=== PATIENT | male | born 1990 | race Caucasian/White ===

== ENCOUNTER 2016-06-17 17:30 | Inpatient (IN) | payer MEDICAID ==
[2016-06-17 17:31] VITALS: BMI 50.1
[2016-06-17] MEDS ORDERED: Sodium Chloride 0.9% 1,000 ML IV ONE ×2 (18:20→20:50)
[2016-06-17] MEDS ORDERED: Sodium Chloride 0.9% 1,000 ML ONE ×2 (18:40→20:58)
[2016-06-17 18:42] LABS: BASO # 0.1 K/uL (0.0-0.2); BASO % 0.5 % (0.0-2.0); EOS # 0.2 K/uL (0.0-0.7); EOS % 1.4 % (0.0-4.0); HEMATOCRIT 46.6 % (35.0-51.0); LYMPH # 2.2 K/uL (1.0-4.3); LYMPH % 18.1 % (20.0-40.0); MEAN CORPUSCULAR HEMOGLOBIN 26.6 pg (27.0-31.0); MEAN CORPUSCULAR HGB CONC 33.7 g/dL (33.0-37.0); MEAN PLATELET VOLUME 7.4 fL (7.2-11.7); MONO # 0.7 K/uL (0.0-0.8); MONO % 5.9 % (0.0-10.0); NRBC % 0.1 % (0.0-2.0); RED CELL DISTRIBUTION WIDTH 14.4 % (11.5-14.5); WHITE BLOOD COUNT 12.2 K/uL (4.8-10.8)
[2016-06-17 18:47] LABS: RBC URINE 4 /hpf (0-3); TRANSITIONAL EPITHIAL < 1 /hpf (0-3); URINE BACTERIA OCC (<OCC); URINE BILIRUBIN NEGATIVE (NEGATIVE); URINE COLOR Yellow (YELLOW); URINE GLUCOSE (UA) NORMAL (Normal); URINE KETONE TRACE mg/dL (NEGATIVE); URINE LEUKOCYTE ESTERASE 3+ Leu/uL (Negative); URINE PROTEIN NEGATIVE (NEGATIVE); URINE UROBILINOGEN NORMAL mg/dL (0.2-1.0); WBC URINE 20 /hpf (0-5)
[2016-06-17 18:48] LABS: URINE BLOOD 1+ (NEGATIVE)
[2016-06-17 18:50] LABS: CHLORIDE 96 mmol/L (98-107); POTASSIUM 3.7 mmol/L (3.6-5.2); SODIUM 137 mmol/L (132-148)
[2016-06-17 18:52] LABS: GFR AFRICAN-AMERICAN > 60
[2016-06-17 18:53] LABS: ALB/GLOB RATIO 1.1 (1.0-2.1); ALKALINE PHOSPHATASE 92 U/L (38-126); ALT/SGPT 28 U/L (21-72); AST/SGOT 26 U/L (17-59); BILIRUBIN,TOTAL 0.6 mg/dL (0.2-1.3); BLOOD UREA NITROGEN 13 mg/dL (9-20); CARBON DIOXIDE 29 mmol/L (22-30); GLUCOSE,RANDOM 87 mg/dL (75-110); TOTAL PROTEIN 7.9 g/dL (6.3-8.3)
[2016-06-17 18:54] LABS: CALCIUM 8.8 mg/dl (8.6-10.4)
--- NOTE | 2016-06-17 19:09 | C.PDOC ---
History Of Present Illness 26 year old male presents to the ED with complaints of persistent right sided abdominal pain since this morning. He states the pain occasionally radiates to his back, and he admits to a history of pancreatitis. He has prior history of alcohol use, but denies recent alcohol intake. Patient also denies history of gall stones, nausea, vomiting, diarrhea, fever, dysuria/hematuria, chest pain, SOB. Time Seen by Provider: 06/17/16 17:49 Chief Complaint (Nursing): Abdominal Pain History Per: Patient History/Exam Limitations: no limitations Onset/Duration Of Symptoms: Hrs Current Symptoms Are (Timing): Still Present Severity: Moderate Location Of Pain/Discomfort: RUQ, RLQ Radiation Of Pain To:: Back Quality Of Discomfort: "Pain" Associated Symptoms: denies: Nausea, Vomiting, Diarrhea, Urinary Symptoms Past Medical History Reviewed: Historical Data, Nursing Documentation, Vital Signs Vital Signs: Last Vital Signs Temp 98.3 F 06/21/16 07:43 Pulse 77 06/21/16 07:43 Resp 20 06/21/16 07:43 BP 101/60 06/21/16 07:43 Pulse Ox 95 06/21/16 07:43 - Medical History PMH: Asthma, Gastritis, Pancreatitis Family History: States: No Known Family Hx - Social History Hx Tobacco Use: No Hx Alcohol Use: Yes (2 x a year) Hx Substance Use: No - Immunization History Hx Tetanus Toxoid Vaccination: Yes Hx Influenza Vaccination: Yes Hx Pneumococcal Vaccination: Yes Review Of Systems Except As Marked, All Systems Reviewed And Found Negative. Constitutional: Negative for: Fever, Chills Cardiovascular: Negative for: Chest Pain Respiratory: Negative for: Cough, Shortness of Breath Gastrointestinal: Positive for: Abdominal Pain. Negative for: Nausea, Vomiting , Diarrhea Physical Exam - Physical Exam Appears: Well, Non-toxic, No Acute Distress, Other (+Obese) Skin: Normal Color, Warm, Dry Head: Normacephalic Eye(s): bilateral: Normal Inspection Oral Mucosa: Moist Chest: Symmetrical Cardiovascular: Rhythm Regular (+Tachycardic) Respiratory: Normal Breath Sounds, No Accessory Muscle Use, No Rales, No Rhonchi , No Wheezing Gastrointestinal/Abdominal: Bowel Sounds, Soft, Tenderness (+Epigastric and RUQ tenderness), No Distention, No Guarding, No Rebound Back: No CVA Tenderness Extremity: Normal ROM Neurological/Psych: Oriented x3 ED Course And Treatment - Laboratory Results Result Diagrams: 06/17/16 18:39 06/21/16 07:10 O2 Sat by Pulse Oximetry: 97 (Room air) Pulse Ox Interpretation: Normal - CT Scan/US Abdomen Complete US Other Rad Studies (CT/US): Read By Radiologist, Radiology Report Reviewed CT/US Interpretation: FINDINGS: Limitations: Overall suboptimal visualization, due to bowel gas and the patient's body habitus. Gallbladder: Within normal limits in appearance, allowing for bowel gas. No evidence of gallstones, significant gallbladder wall thickening, or pericholecystic fluid. Reportedly negative sonographic Tapia's sign. Common bile duct: Does not appear abnormally dilated, measuring less than 6 mm in diameter. Liver: Demonstrates diffusely increased parenchymal echogenicity, most compatible with fatty infiltration. Enlarged, measuring 18 cm in length. Pancreas: Obscured by gas. Right kidney: Partially obscured by gas. Within normal limits in appearance. No evidence of hydronephrosis. Left kidney: Partially obscured by gas. Within normal limits in appearance. No evidence of hydronephrosis. Spleen: Mildly enlarged, measuring 13.8 cm in length. IMPRESSION: No definite acute abnormality identified, allowing for bowel gas. Enlarged, fatty liver. Mild splenomegaly. See above for remaining findings. Progress Note: Blood work, Abdomen Complete US, Urinalysis ordered and reviewed. Patient given IV NS bolus x 2, IV toradol for pain. Reevaluation Time: 20:45 Reassessment Condition: Improved (Patient resting comfortably currently, states pain has improved.) - Physician Consult Information Physician Contacted: Mary Trevizo Outcome Of Conversation: Discussed patient with Dr. Sybil Trevizo, he agrees with admission for acute pancreatitis with Dr. Blanco for GI. Medical Decision Making Medical Decision Making: differential diagnoses considered: pancreatitis, PUD, gastritis, GERD, WA/ACS, cholecystitis, cholangitis Disposition - Disposition Disposition: HOSPITALIZED Disposition Time: 21:02 Condition: STABLE - Clinical Impression Clinical Impression: Acute pancreatitis - Scribe Statement The provider has reviewed the documentation as recorded by the Scribe Lety Landis. Provider Attestation: All medical record entries made by the Scribe were at my direction and personally dictated by me. I have reviewed the chart and agree that the record accurately reflects my personal performance of the history, physical exam, medical decision making, and the department course for this patient. I have also personally directed, reviewed, and agree with the discharge instructions and disposition. Decision To Admit - Pt Status Changed To: Hospital Disposition Of: Inpatient - Admit Certification Admit to Inpatient:: After my assessment, the patient will require hospitalization for at least two midnights. This is because of the severity of symptoms shown, intensity of services needed, and/or the medical risk in this patient being treated as an outpatient. - InPatient: Physician Admission Certification:: see notes - . Bed Request Type: Regular Admitting Physician: Mary Trevizo Patient Diagnosis: Abdominal pain, Acute pancreatitis
--- NOTE | 2016-06-17 21:59 | CP.PCM.HP ---
History of Present Illness - History of Present Illness History of Present Illness: 25-year-old male who presented to the ED with complaints of persistent right- sided abdominal pain since this morning. He states the pain occasionally radiates to his back, and he admits to a history of pancreatitis. He has a prior history of alcohol use, but denies recent alcohol intake. Patient also denies history of gallstone, nausea, vomiting, diarrhea, fever, dysuria/ hematuria, chest pain, SOB. Present on Admission - Present on Admission Any Indicators Present on Admission: No Past Patient History - Infectious Disease Hx of Infectious Diseases: None - Past Medical History & Family History Past Medical History?: Yes - Past Social History Smoking Status: Never Smoked - CARDIAC Hx Cardiac Disorders: No - PULMONARY Hx Asthma: Yes - NEUROLOGICAL Hx Neurological Disorder: No - HEENT Hx HEENT Problems: No - RENAL Hx Chronic Kidney Disease: No - ENDOCRINE/METABOLIC Hx Endocrine Disorders: No - HEMATOLOGICAL/ONCOLOGICAL Hx Blood Disorders: No - INTEGUMENTARY Hx Dermatological Problems: No - MUSCULOSKELETAL/RHEUMATOLOGICAL Hx Musculoskeletal Disorders: No Hx Falls: No - GASTROINTESTINAL Hx Gastritis: Yes Hx Pancreatitis: Yes - GENITOURINARY/GYNECOLOGICAL Hx Genitourinary Disorders: No - PSYCHIATRIC Hx Substance Use: No - SURGICAL HISTORY Hx Surgeries: No - ANESTHESIA Hx Anesthesia: No Meds Allergies/Adverse Reactions: Allergies Allergy/AdvReac Type Severity Reaction Status Date / Time No Known Allergies Allergy Verified 08/29/16 02:42 Results - Vital Signs Recent Vital Signs: Last Vital Signs Temp 97.9 F 06/17/16 17:44 Pulse 76 06/17/16 21:07 Resp 15 06/17/16 21:07 BP 136/80 06/17/16 21:07 Pulse Ox 97 06/17/16 21:16 - Labs Result Diagrams: 06/17/16 18:39 06/21/16 07:10 Assessment & Plan (1) Abdominal pain Status: Acute (2) Acute pancreatitis Status: Acute (3) Bronchitis Status: Acute (4) Pancreatitis Status: Acute (5) Right upper quadrant abdominal pain Status: Acute - Assessment and Plan (Free Text) Plan: Labs and meds reviewed IV fluids Toradol Lovenox Talk with family Labs next a.m.
[2016-06-18] MEDS: Dextrose 5%/0.45% NS 1,000 ML IV SCH ×3 (01:00→22:17)
[2016-06-18] MEDS: DiphenhydrAMINE 50 mg/ml Inj IVP PRN ×5 (01:10→22:15)
[2016-06-18] MEDS: HYDROmorphone 1 mg/ml ISec IVP PRN ×5 (01:10→22:16)
[2016-06-18] MEDS ORDERED: HYDROmorphone 1 mg/ml ISec IVP STA (05:57)
--- NOTE | 2016-06-18 07:53 | US ---
Abdominal ultrasound History: Abdominal pain. Comparison: None available. Technique: Real-time sonography was performed through the abdomen. Findings: Liver: 18.6 centimeters in length. Diffuse increased echogenicity suggestive for fatty infiltration versus underlying hepatic parenchymal disease. Gallbladder appears preserved. Top normal wall thickness of 3 millimeters. Common bile duct measures 5.4 millimeters, within normal limits. Pancreas not well visualized. Spleen is enlarged measuring 13.8 x 12.4 x 5.3 centimeters. IVC and aorta not well visualized, obscured by adjacent bowel gas. Right kidney: 11.6 x 5.3 x 5.5 centimeters. No calculi or hydronephrosis. Left Kidney: Obscured by adjacent bowel gas. 12.2 x 6.4 x 4.8 centimeters. No calculi or hydronephrosis. Impression: Limited study secondary to patient noncompliance and gaseous distention of the bowel. Enlarged liver measuring 18.6 centimeters in length with diffuse increased echogenicity suggestive for fatty infiltration versus hepatic parenchymal disease. Splenomegaly. The pancreas, IVC, and aorta are not well visualized. Limited visualization of the left kidney. These findings were preliminarily reported at 8:39 p.m. on 06/17/[address] Wendy Remy from [facility].
--- NOTE | 2016-06-18 13:41 | PN ---
DATE: 06/18/2016 LOCATION: 370, bed B. This is a 26-year-old male seen for GI consultation as requested by the admitting MD on 06/17/16, see n again for followup today with intermittent periods of abdominal pain. The entire chart is reviewed including, but not limited to the most recent lab and radiology study results, current and the previ ous medication lists, current and the previous medical events and the latest lipase level is 2425. The patient has leukocytosis of 12.2. Abdominal ultrasound done today, report and films are seen. PHYSICAL EXAMINATION: GENERAL: A 26-year-old male. VITAL SIGNS: Afebrile with heart rate of 88, respiratory rate 20-22, blood pressure of 118/74. HEENT: Showed pale, dry oral mucoid membrane. Nonicteric sclerae. LUNGS: Few scattered crepitation, decreased air entry at bases. HEART: Positive S1 and S2. ABDOMEN: Soft with mild generalized tenderness. No mass or organomegaly. No rebound tenderness or guarding. RECTAL: The patient refused. EXTREMITIES: Without edema, clubbing or cyanosis. NEUROLOGIC: No reported new neurological deficits, sensory or motor. IMPRESSION: 1. Acute pancreatitis, most likely alcohol induced. 2. Reexacerbation of peptic ulcer disease. 3. Known history of bronchial asthma. SUGGESTION: 1. Agree with your plan. 2. Keep n.p.o. for now. 3. Rehydration. 4. Pain management. 3. Sectional abdominal and pelvic CAT scan. 4. Lipids profile. Annelise Horne MD cc: 14 TT: 06/18/2016 13:41:20 Confirmation # [id number] Dictation # [id number] tn
--- NOTE | 2016-06-18 14:19 | CP.PCM.PN ---
Subjective - Date & Time of Evaluation Date of Evaluation: 06/18/16 Time of Evaluation: 09:40 - Subjective Subjective: clinically same Objective - Vital Signs/Intake and Output Vital Signs (last 24 hours): Temp Pulse Resp BP Pulse Ox 98.2 F 82 20 112/77 96 06/18/16 08:15 06/18/16 08:15 06/18/16 08:15 06/18/16 08:15 06/18/16 08:15 Intake and Output: 06/18/16 06/18/16 06:59 18:59 Intake Total 630 Balance 630 - Medications Medications: Current Medications Diphenhydramine HCl (Benadryl) 25 mg IVP Q4 PRN PRN Reason: Itching / Pruritus Last Admin: 06/18/16 14:17 Dose: 25 mg Enoxaparin Sodium (Lovenox) 40 mg SC DAILY [facility] Hydromorphone HCl (Dilaudid) 1 mg IVP Q4 PRN PRN Reason: Pain, moderate (4-7) Last Admin: 06/18/16 14:13 Dose: 1 mg Dextrose/Sodium Chloride (Dextrose 5%/0.45% Ns 1000 Ml) 1,000 mls @ 100 mls/hr IV .Q10H [facility] Last Admin: 06/18/16 12:17 Dose: 100 mls/hr - Constitutional Appears: Well - Head Exam Head Exam: ATRAUMATIC, NORMAL INSPECTION, NORMOCEPHALIC - Eye Exam Eye Exam: EOMI, Normal appearance, PERRL Pupil Exam: NORMAL ACCOMODATION, PERRL - ENT Exam ENT Exam: Mucous Membranes Moist, Normal Exam - Neck Exam Neck Exam: Full ROM, Normal Inspection. absent: Lymphadenopathy - Respiratory Exam Respiratory Exam: Decreased Breath Sounds - Cardiovascular Exam Cardiovascular Exam: REGULAR RHYTHM, +S1, +S2 - GI/Abdominal Exam GI & Abdominal Exam: Soft, Diminished Bowel Sounds - Rectal Exam Rectal Exam: Deferred Assessment and Plan (1) Abdominal pain Status: Acute (2) Acute pancreatitis Status: Acute (3) Bronchitis Status: Acute (4) Pancreatitis Status: Acute (5) Right upper quadrant abdominal pain Status: Acute - Assessment and Plan (Free Text) Plan: Continue IV fluids DVT prophylaxis Dilaudid Benadryl Vitals monitoring
[2016-06-18] MEDS: Enoxaparin 40 mg Syringe SC SCH (14:38)
[2016-06-18 17:13] LABS: AMYLASE 212 U/L (30-110)
[2016-06-19] MEDS: DiphenhydrAMINE 50 mg/ml Inj IVP PRN ×4 (02:10→13:48)
[2016-06-19] MEDS: HYDROmorphone 1 mg/ml ISec IVP PRN ×6 (02:10→22:32)
[2016-06-19] MEDS: Dextrose 5%/0.45% NS 1,000 ML IV SCH ×3 (06:25→22:34)
[2016-06-19 08:14] LABS: CHLORIDE 96 mmol/L (98-107); SODIUM 135 mmol/L (132-148)
[2016-06-19 08:15] LABS: POTASSIUM 4.1 mmol/L (3.6-5.2)
[2016-06-19 08:17] LABS: AMYLASE 128 U/L (30-110); GFR AFRICAN-AMERICAN > 60
[2016-06-19 08:18] LABS: BLOOD UREA NITROGEN 8 mg/dL (9-20); CALCIUM 8.2 mg/dl (8.6-10.4); CARBON DIOXIDE 27 mmol/L (22-30); GLUCOSE,RANDOM 95 mg/dL (75-110)
[2016-06-19] MEDS: Enoxaparin 40 mg Syringe SC SCH (09:51)
--- NOTE | 2016-06-19 11:29 | PN ---
DATE: 06/19/2016 LOCATION: 370, bed B. This is a 26-year-old male seen and examined in rounds with intermittent periods of severe crampy abd ominal pain, but less than before with nausea and dyspepsia. No reported active bleeding or vomiting this morning. The entire chart is reviewed including, but not limited to the most recent lab and radiology study re sults, current and the previous medication lists, current and the previous medical events. Case was discussed at length with the staff on the floor. Today's lipase level went down to 434 with amylase 128 with subsequent improvement of his clinical status. His calcium is still low 8.2 with low BUN of 8, but normal creatinine. PHYSICAL EXAMINATION: GENERAL: A 26-year-old male appeared to be awake, alert. VITAL SIGNS: Afebrile with heart rate of 84, respiratory rate 20-22, blood pressure 116/72. HEENT: Showed pale, dry oral mucoid membrane. Nonicteric sclerae. LUNGS: Few scattered crepitation, decreased air entry at bases. HEART: Positive S1 and S2. ABDOMEN: Soft with generalized tenderness. No mass or organomegaly. No rebound tenderness or guard ing. RECTAL: The patient refused. EXTREMITIES: Without significant reported clubbing or cyanosis. NEUROLOGIC: No reported new neurologic deficits, sensory or motor. IMPRESSION: 1. Acute pancreatitis, most likely alcohol induced. 2. Known history of peptic ulcer disease. 3. Bronchial asthma by history. SUGGESTION: 1. Continue current management. 2. IV Flagyl. 3. Continue Reglan IV. 4. Keep n.p.o. until serum lipase and amylase levels are normal or near normal. 5. The patient may benefit from MRCP if his symptoms persist before discharge home. Annelise Horne MD cc: 14 TT: 06/19/2016 11:28:55 Confirmation # [id number] Dictation # [id number] tn
--- NOTE | 2016-06-19 13:35 | CP.PCM.PN ---
Subjective - Date & Time of Evaluation Date of Evaluation: 06/19/16 Time of Evaluation: 09:40 - Subjective Subjective: clinically same Objective - Vital Signs/Intake and Output Vital Signs (last 24 hours): Temp Pulse Resp BP Pulse Ox 98.3 F 81 18 109/71 97 06/19/16 08:00 06/19/16 08:00 06/19/16 08:00 06/19/16 08:00 06/19/16 08:00 Intake and Output: 06/19/16 06/19/16 06:59 18:59 Intake Total 830 Balance 830 - Medications Medications: Current Medications Diphenhydramine HCl (Benadryl) 25 mg IVP Q4 PRN PRN Reason: Itching / Pruritus Last Admin: 06/19/16 09:50 Dose: 25 mg Enoxaparin Sodium (Lovenox) 40 mg SC DAILY [facility] Last Admin: 06/19/16 09:51 Dose: 40 mg Hydromorphone HCl (Dilaudid) 1 mg IVP Q4 PRN PRN Reason: Pain, moderate (4-7) Last Admin: 06/19/16 09:47 Dose: 1 mg Dextrose/Sodium Chloride (Dextrose 5%/0.45% Ns 1000 Ml) 1,000 mls @ 100 mls/hr IV .Q10H [facility] Last Admin: 06/19/16 06:25 Dose: Not Given - Labs Labs: 06/19/16 07:45 - Constitutional Appears: Well - Head Exam Head Exam: ATRAUMATIC, NORMAL INSPECTION, NORMOCEPHALIC - Eye Exam Eye Exam: EOMI, Normal appearance, PERRL Pupil Exam: NORMAL ACCOMODATION, PERRL - ENT Exam ENT Exam: Mucous Membranes Moist, Normal Exam - Neck Exam Neck Exam: Full ROM, Normal Inspection. absent: Lymphadenopathy - Respiratory Exam Respiratory Exam: Decreased Breath Sounds - Cardiovascular Exam Cardiovascular Exam: REGULAR RHYTHM, +S1, +S2 - GI/Abdominal Exam GI & Abdominal Exam: Soft, Diminished Bowel Sounds - Rectal Exam Rectal Exam: Deferred Assessment and Plan (1) Abdominal pain Status: Acute (2) Acute pancreatitis Status: Acute (3) Bronchitis Status: Acute (4) Pancreatitis Status: Acute (5) Right upper quadrant abdominal pain Status: Acute - Assessment and Plan (Free Text) Plan: Labs noted DVT prophylaxis Benadryl Continue IV fluids Dilaudid Continue same Vitals monitoring
[2016-06-20 00:05] VITALS: RESP 20
[2016-06-20] MEDS: DiphenhydrAMINE 50 mg/ml Inj IVP PRN ×3 (02:36→23:50)
[2016-06-20] MEDS: HYDROmorphone 1 mg/ml ISec IVP PRN ×4 (02:36→18:20)
[2016-06-20] MEDS: Dextrose 5%/0.45% NS 1,000 ML IV SCH ×4 (03:03→23:07)
[2016-06-20 08:36] LABS: CHLORIDE 97 mmol/L (98-107); POTASSIUM 3.5 mmol/L (3.6-5.2); SODIUM 137 mmol/L (132-148)
[2016-06-20 08:38] LABS: AMYLASE 75 U/L (30-110); CARBON DIOXIDE 28 mmol/L (22-30); GFR AFRICAN-AMERICAN > 60
[2016-06-20 08:39] LABS: BLOOD UREA NITROGEN 7 mg/dL (9-20); CALCIUM 8.3 mg/dl (8.6-10.4); GLUCOSE,RANDOM 95 mg/dL (75-110)
--- NOTE | 2016-06-20 09:13 | CON ---
DATE: 06/17/[address] Annelise Horne to Dr. Chanda Trevizo. I was called for GI consultation by the admitting MD. The patient is seen and fully examined on 06/17 as requested by the admitting medical team for GI consultation. The entire chart is reviewed, including but not limited to, most recent lab and radiology study results, current and previous medic ation lists, current and previous medical events, allergy to medication list as well as all the avail able current and previous medical records. Case discussed at length with the staff on the floor. This is a 26-year-old male who was admitted to the hospital through the Emergency Room with a main co mplaint of severe abdominal pain, mainly in the right upper quadrant and mid epigastric area, somewha t radiates to the back, associated with nausea and dyspepsia. No reported active bleeding, chills, fever or chest pain. No reported complaint of significant shortness of breath. The patient admitted recent history of alcohol intake prior to his admission. After being admitted to the hospital, patient was found to have a leukocytosis of 12.2 with excessive increase of serum lipase and amylase levels. Abdominal CAT scan as well as ultrasound showed no definitive acute abnormalities due to excessive am ount of gas, but with evidence of enlarged fatty liver with mild splenomegaly. PAST MEDICAL HISTORY: Including, but not limited to: 1. Peptic ulcer disease, gastritis. 2. Bronchial asthma. 3. Alcohol-induced pancreatitis. FAMILY HISTORY: Unknown. ALLERGIES TO MEDICATION: Unclear. CURRENT MEDICATIONS: Lists were reviewed. SOCIAL HISTORY: Positive for alcohol intake. PHYSICAL EXAMINATION: GENERAL: A 26-year-old male, appeared to be awake, alert, oriented, mildly obese, complaining of sev ere crampy abdominal pain. VITAL SIGNS: Afebrile with pulse of 80, respiratory rate 16-18 with blood pressure 140/82. HEENT: Showed dry oral mucoid membrane. Slightly icteric sclerae. LYMPH NODES: No lymphadenitis or lymphadenopathy. LUNGS: Few scattered crepitation with decreased air entry at bases. HEART: Positive S1 and S2. ABDOMEN: Soft with diffuse generalized tenderness, but mainly in the midepigastric and right upper q uadrant area. Mildly obese. No mass or organomegaly. No rebound tenderness or guarding. RECTAL: The patient refused. EXTREMITIES: Without edema, clubbing or cyanosis. NEUROLOGIC: No reported neurological deficit, sensory or motor. IMPRESSION: 1. Acute pancreatitis, most likely secondary to alcohol induced. 2. Reexacerbation of peptic ulcer disease. 3. To rule out possible noncalculous cholecystitis. 4. Known history of gastritis as well as bronchial asthma. 5. To rule out also hyperlipidemia-induced pancreatitis. The patient is somewhat obese. SUGGESTION: 1. Agree with your plan. 2. Proton pump inhibitors. 3. Keep n.p.o. until serum lipase, amylase level are normal or near normal. 4. Lipid profile. 5. If the patient's symptoms persist, then MRCP to be kept in mind. 6. Rehydration. 7. Further recommendations to follow and no need for aggressive GI workup in the meantime. Thank you for letting me participate in your patient's case management. Annelise Horne MD cc: 14 TT: 06/20/2016 09:13:14 Confirmation # [id number] Dictation # [id number]
--- NOTE | 2016-06-20 10:31 | PN ---
DATE: 06/20/2016 LOCATION: 370, bed B. This is a 26-year-old male seen and examined in rounds with less abdominal pain, but a complaint of g eneralized weakness and malaise, appears to be somewhat awake, alert, oriented. Tolerating oral inta ke of liquid diet as ordered by nursing practitioner. The entire chart is reviewed, including but not limited to the most recent lab and radiology study re sults, current and previous medication list, current and the previous medical events. Today's labs showed low potassium of 3.5 with low BUN of 7 as well as low calcium of 8.3, but with no rmal serum lipase and amylase level, was reported leukocytosis before. Case discussed with the staff at length. PHYSICAL EXAMINATION: GENERAL: A 26-year-old old male. VITAL SIGNS: Afebrile, awake, alert, oriented with a pulse of 86, respiratory rate 20-22, blood pres sure 110/72. HEENT: Showed pale, dry oral mucoid membrane. Nonicteric sclerae. LUNGS: Few scattered crepitation, decreased air entry at bases. HEART: Positive S1 and S2. ABDOMEN: Soft with mild generalized tenderness. No mass or organomegaly. No rebound tenderness or guarding, mildly obese. RECTAL: The patient refused. EXTREMITIES: Without significant edema, clubbing or cyanosis. NEUROLOGIC: No reported new neurological deficits, sensory or motor. IMPRESSION: 1. Acute pancreatitis, believed to be secondary to alcohol-induced. 2. Reexacerbation of peptic ulcer disease. 3. Known history of bronchial asthma. SUGGESTION: 1. Continue current management. 2. Advance diet. 3. Lipid profile. 4. The patient may discharge home today if tolerates solid food and to be followed up as outpatient by the admitting medical team. Annelise Horne MD cc: 14 TT: 06/20/2016 10:31:18 Confirmation # [id number] Dictation # [id number]
[2016-06-20] MEDS: Enoxaparin 40 mg Syringe SC SCH (10:33)
--- NOTE | 2016-06-20 11:31 | CP.PCM.PN ---
Subjective - Date & Time of Evaluation Date of Evaluation: 06/20/16 Time of Evaluation: 09:40 - Subjective Subjective: clinically same Objective - Vital Signs/Intake and Output Vital Signs (last 24 hours): Temp Pulse Resp BP Pulse Ox 98.3 F 89 20 101/70 95 06/20/16 08:23 06/20/16 08:23 06/20/16 08:23 06/20/16 08:23 06/20/16 08:23 Intake and Output: 06/20/16 06/20/16 06:59 18:59 Intake Total 1100 Balance 1100 - Medications Medications: Current Medications Diphenhydramine HCl (Benadryl) 25 mg IVP Q4 PRN PRN Reason: Itching / Pruritus Last Admin: 06/20/16 02:36 Dose: 25 mg Enoxaparin Sodium (Lovenox) 40 mg SC DAILY [facility] Last Admin: 06/20/16 10:33 Dose: 40 mg Hydromorphone HCl (Dilaudid) 1 mg IVP Q4 PRN PRN Reason: Pain, moderate (4-7) Last Admin: 06/20/16 07:45 Dose: 1 mg Dextrose/Sodium Chloride (Dextrose 5%/0.45% Ns 1000 Ml) 1,000 mls @ 100 mls/hr IV .Q10H [facility] Last Admin: 06/20/16 03:03 Dose: Not Given - Labs Labs: 06/20/16 07:56 - Constitutional Appears: Well - Head Exam Head Exam: ATRAUMATIC, NORMAL INSPECTION, NORMOCEPHALIC - Eye Exam Eye Exam: EOMI, Normal appearance, PERRL Pupil Exam: NORMAL ACCOMODATION, PERRL - ENT Exam ENT Exam: Mucous Membranes Moist, Normal Exam - Neck Exam Neck Exam: Full ROM, Normal Inspection. absent: Lymphadenopathy - Respiratory Exam Respiratory Exam: Decreased Breath Sounds - Cardiovascular Exam Cardiovascular Exam: REGULAR RHYTHM, +S1, +S2 - GI/Abdominal Exam GI & Abdominal Exam: Soft, Diminished Bowel Sounds - Rectal Exam Rectal Exam: Deferred Assessment and Plan (1) Abdominal pain Status: Acute (2) Acute pancreatitis Status: Acute (3) Bronchitis Status: Acute (4) Pancreatitis Status: Acute (5) Right upper quadrant abdominal pain Status: Acute - Assessment and Plan (Free Text) Plan: Patient feeling better Plan discharge next a.m. Follow-up with Dr. Zaid Maddox same
[2016-06-20] MEDS ORDERED: Potassium Chloride 20 mEq ER Tab PO STA (22:55)
[2016-06-20] MEDS: HYDROmorphone 0.5 mg/0.5 ml ISec IVP PRN (23:51)
[2016-06-21] MEDS: DiphenhydrAMINE 50 mg/ml Inj IVP PRN (05:42)
[2016-06-21] MEDS: HYDROmorphone 0.5 mg/0.5 ml ISec IVP PRN ×2 (05:43→12:58)
[2016-06-21 07:44] VITALS: BP 101/60; PULSE 77; TEMP 98.3
[2016-06-21 07:48] LABS: CHLORIDE 100 mmol/L (98-107); POTASSIUM 4.4 mmol/L (3.6-5.2); SODIUM 138 mmol/L (132-148)
[2016-06-21 07:51] LABS: AMYLASE 69 U/L (30-110); BLOOD UREA NITROGEN 6 mg/dL (9-20); CARBON DIOXIDE 29 mmol/L (22-30); GFR AFRICAN-AMERICAN > 60
[2016-06-21 07:52] LABS: CALCIUM 8.4 mg/dl (8.6-10.4); GLUCOSE,RANDOM 89 mg/dL (75-110)
[2016-06-21] MEDS: Enoxaparin 40 mg Syringe SC SCH (09:56)
--- NOTE | 2016-06-21 12:45 | CP.PCM.PN ---
Subjective - Date & Time of Evaluation Date of Evaluation: 06/21/16 Time of Evaluation: 12:15 - Subjective Subjective: DISMANTLER NOTES Pt seen an d examined today , abdominal pain improved, denies any N/V/D, diet advanced to regular diet and pt tolerated well without any issues amylase/ lipase - WNL , a febrile A/P 26 yr old male admitted for acute pancreatitis , amylase / lipase back to normal seen by Dr. Sybil roth , cleared for discharge home today and f/u with Dr. Mar office in 3-5 day s Discharge plan discussed with patient who understands and agrees with plan Pt instructed to returns to ED if symptoms returns Objective - Vital Signs/Intake and Output Vital Signs (last 24 hours): Temp Pulse Resp BP Pulse Ox 98.3 F 77 20 101/60 95 06/21/16 07:43 06/21/16 07:43 06/21/16 07:43 06/21/16 07:43 06/21/16 07:43 Intake and Output: 06/21/16 06/21/16 06:59 18:59 Intake Total 1160 180 Balance 1160 180 - Medications Medications: Current Medications Diphenhydramine HCl (Benadryl) 25 mg IVP Q4 PRN PRN Reason: Itching / Pruritus Last Admin: 06/21/16 05:42 Dose: 25 mg Enoxaparin Sodium (Lovenox) 40 mg SC DAILY [facility] Last Admin: 06/21/16 09:56 Dose: 40 mg Hydromorphone HCl (Dilaudid) 1 mg IVP Q4 PRN PRN Reason: Pain, moderate (4-7) Last Admin: 06/21/16 05:43 Dose: 1 mg - Labs Labs: 06/21/16 07:10
--- NOTE | 2016-06-21 14:08 | PN ---
DATE: 06/21/2016 LOCATION: Room 370, bed B. This is a 26-year-old male seen and examined in rounds without significant clinical changes with repo rted abdominal pain. The entire chart is reviewed including the most recent lab and radiology study results, current and p revious medication list, current and the previous medical events, and the patient's latest SMA-7 was normal except low BUN of 6 with low calcium 8.4, but normal amylase, lipase level. PHYSICAL EXAMINATION: GENERAL: A 26-year-old male, awake, alert, oriented. VITAL SIGNS: Afebrile with pulse of 78, respiratory rate 20-22, blood pressure of 106/62. HEENT: Showed dry oral mucoid membrane, nonicteric sclerae. LUNGS: Few scattered crepitation, decreased air entry at bases. HEART: Positive S1 and S2. ABDOMEN: Soft. Bowel sounds are present with slight generalized tenderness. No mass or organomegal y. No rebound tenderness or guarding. RECTAL: The patient refused. EXTREMITIES: With mild edematous changes. No clubbing or cyanosis. NEUROLOGIC: No reported new neurological deficits, sensory or motor. IMPRESSION: 1. Acute pancreatitis. 2. Peptic ulcer disease. 3. Known history of bronchial asthma. SUGGESTION: 1. Agree with your plan. 2. Again, . 3. Advance diet. 4. We will follow up with you as per your request. Annelise Horne MD cc: [id number] TT: 06/21/2016 14:07:45 Confirmation # [id number] Dictation # [id number] leann
[2016-06-22 12:27] VITALS: O2SAT 97
== END 2016-06-21 15:27 | disposition home or self-care (01) | DRG 204 ==
LOC: C.ER 17:30 → C.9E 21:02 → C.3T 22:21
PROVIDERS: ADMIT Internal Medicine Nephrology; ATTEND Internal Medicine Nephrology
DX: K85.20 Alcohol induced acute pancreatitis without necrosis or infection (principal); K27.9 Peptic ulcer, site unspecified, unspecified as acute or chronic, without hemorrhage or perforation; K86.0 Alcohol-induced chronic pancreatitis; F10.10 Alcohol abuse, uncomplicated; J45.909 Unspecified asthma, uncomplicated

== ENCOUNTER 2016-08-29 02:27 | Inpatient (IN) | payer MEDICAID ==
[2016-08-29 02:29] VITALS: BMI 50.1
[2016-08-29] MEDS ORDERED: Sodium Chloride 0.9% 1,000 ML IV ONE ×2 (02:52→04:01)
[2016-08-29] MEDS ORDERED: Sodium Chloride 0.9% 1,000 ML ONE ×2 (02:58→04:17)
[2016-08-29] MEDS ORDERED: Morphine 4 MG/ML VIAL ONE ×2 (03:05→09:12)
[2016-08-29 03:31] LABS: ALBUMIN 3.9 g/dL (3.5-5.0)
[2016-08-29 03:33] LABS: GFR AFRICAN-AMERICAN > 60; GFR NON-AFRICAN AMERICAN > 60
[2016-08-29 03:34] LABS: ALT/SGPT 29 U/L (21-72); AST/SGOT 23 U/L (17-59); BASO # 0.1 K/uL (0.0-0.2); BASO % 0.7 % (0.0-2.0); BLOOD UREA NITROGEN 15 mg/dL (9-20); EOS # 0.2 K/uL (0.0-0.7); EOS % 1.5 % (0.0-4.0); HEMOGLOBIN 15.5 g/dL (12.0-18.0); LYMPH # 2.5 K/uL (1.0-4.3); MEAN CELL VOLUME 78.9 fL (80.0-94.0); MEAN CORPUSCULAR HEMOGLOBIN 26.1 pg (27.0-31.0); MEAN CORPUSCULAR HGB CONC 33.1 g/dL (33.0-37.0); MEAN PLATELET VOLUME 7.7 fL (7.2-11.7); MONO # 0.8 K/uL (0.0-0.8); MONO % 5.8 % (0.0-10.0); NEUT # 9.6 K/uL (1.8-7.0); RBC 5.94 Mil/uL (4.40-5.90); RED CELL DISTRIBUTION WIDTH 14.7 % (11.5-14.5); WHITE BLOOD COUNT 13.2 K/uL (4.8-10.8)
[2016-08-29 03:51] LABS: LIPASE 11570 U/L (23-300)
--- NOTE | 2016-08-29 04:31 | C.PDOC ---
History Of Present Illness 26 year old male presents to the ED with complaints of epigastric pain, LUQ pain , and nausea for two days. Patient notes a history of acute pancreatitis due to prior alcohol abuse. He states he tried taking antacids and pepto bismol at home with no relief. Patient denies fever, diarrhea, chest pain, SOB. Time Seen by Provider: 08/29/16 02:37 Chief Complaint (Nursing): Abdominal Pain History Per: Patient History/Exam Limitations: no limitations Onset/Duration Of Symptoms: Days (2 days ) Current Symptoms Are (Timing): Still Present Severity: Moderate Location Of Pain/Discomfort: Epigastric, LUQ Radiation Of Pain To:: None Quality Of Discomfort: "Pain" Associated Symptoms: Nausea. denies: Fever, Diarrhea Recent travel outside of the [place]: No Past Medical History Reviewed: Historical Data, Nursing Documentation, Vital Signs Vital Signs: Last Vital Signs Temp 98.4 F 09/02/16 15:00 Pulse 72 09/02/16 15:00 Resp 20 09/02/16 15:00 BP 122/86 09/02/16 15:00 Pulse Ox 96 09/04/16 15:00 - Medical History PMH: Asthma, Gastritis, Pancreatitis Family History: States: No Known Family Hx - Social History Hx Tobacco Use: No Hx Alcohol Use: Yes (2 x a year) Hx Substance Use: No - Immunization History Hx Tetanus Toxoid Vaccination: Yes Hx Influenza Vaccination: Yes Hx Pneumococcal Vaccination: Yes Review Of Systems Except As Marked, All Systems Reviewed And Found Negative. Constitutional: Negative for: Fever, Chills ENT: Negative for: Ear Pain, Ear Discharge Cardiovascular: Negative for: Chest Pain, Palpitations Respiratory: Negative for: Cough, Shortness of Breath Gastrointestinal: Positive for: Nausea, Abdominal Pain. Negative for: Vomiting , Diarrhea Physical Exam - Physical Exam Appears: Non-toxic, In Acute Distress (in mild to moderate pain), Other ( morbidly obese ) Skin: Normal Color, Warm, Dry Oral Mucosa: Moist Cardiovascular: Rhythm Regular, Other (Tachycardic and regular rhythm ) Respiratory: Normal Breath Sounds, No Rales, No Rhonchi, No Wheezing Gastrointestinal/Abdominal: Bowel Sounds, Soft, Tenderness (epigastric and LUQ tenderness ), No Distention, No Guarding, No Rebound Back: Normal Inspection, No CVA Tenderness Neurological/Psych: Oriented x3 ED Course And Treatment - Laboratory Results Result Diagrams: 09/02/16 07:51 07 07:51 O2 Sat by Pulse Oximetry: 96 (room air ) Pulse Ox Interpretation: Normal Progress Note: Blood work, UA ordered and reviewed. Patient given IV NS bolus, IV Morphine. Reevaluation Time: 06:40 Reassessment Condition: Unchanged (Patient still having significant pain, IV morphine ordered.) - Physician Consult Information Physician Contacted: Mary Trevizo Outcome Of Conversation: Discussed patient with Dr. Sybil Trevizo, agrees with admission for acute pancreatitis. Disposition - Disposition Disposition: HOSPITALIZED Disposition Time: 04:46 Condition: STABLE - Clinical Impression Clinical Impression: Acute pancreatitis - Scribe Statement The provider has reviewed the documentation as recorded by the Scribe Za Frey All medical record entries made by the Scribe were at my direction and personally dictated by me. I have reviewed the chart and agree that the record accurately reflects my personal performance of the history, physical exam, medical decision making, and the department course for this patient. I have also personally directed, reviewed, and agree with the discharge instructions and disposition. Decision To Admit - Pt Status Changed To: Hospital Disposition Of: Inpatient - Admit Certification Admit to Inpatient:: After my assessment, the patient will require hospitalization for at least two midnights. This is because of the severity of symptoms shown, intensity of services needed, and/or the medical risk in this patient being treated as an outpatient. - InPatient: Physician Admission Certification:: see notes - . Bed Request Type: Regular Admitting Physician: Mary Trevizo Patient Diagnosis: Acute pancreatitis
[2016-08-29 04:56] LABS: SQUAMOUS EPITHIAL < 1 /hpf (0-5); URINE BILIRUBIN NEGATIVE (NEGATIVE); URINE BLOOD NEGATIVE (NEGATIVE); URINE COLOR Yellow (YELLOW); URINE GLUCOSE (UA) NORMAL (Normal); URINE LEUKOCYTE ESTERASE 3+ Leu/uL (Negative); URINE NITRATE NEGATIVE (NEGATIVE); URINE PROTEIN NEGATIVE (NEGATIVE); URINE UROBILINOGEN NORMAL mg/dL (0.2-1.0)
[2016-08-29 04:58] LABS: URINE CLARITY Hazy (Clear)
--- NOTE | 2016-08-29 07:03 | CP.PCM.HP ---
Past Patient History - Infectious Disease Hx of Infectious Diseases: None - Past Medical History & Family History Past Medical History?: Yes - Past Social History Smoking Status: Current Some Days Smoker - CARDIAC Hx Cardiac Disorders: No - PULMONARY Hx Asthma: Yes - NEUROLOGICAL Hx Neurological Disorder: No - HEENT Hx HEENT Problems: No - RENAL Hx Chronic Kidney Disease: No - ENDOCRINE/METABOLIC Hx Endocrine Disorders: No - HEMATOLOGICAL/ONCOLOGICAL Hx Blood Disorders: No - INTEGUMENTARY Hx Dermatological Problems: No - MUSCULOSKELETAL/RHEUMATOLOGICAL Hx Musculoskeletal Disorders: No Hx Falls: No - GASTROINTESTINAL Hx Gastritis: Yes Hx Pancreatitis: Yes - GENITOURINARY/GYNECOLOGICAL Hx Genitourinary Disorders: No - PSYCHIATRIC Hx Substance Use: No - SURGICAL HISTORY Hx Surgeries: No - ANESTHESIA Hx Anesthesia: No Meds Allergies/Adverse Reactions: Allergies Allergy/AdvReac Type Severity Reaction Status Date / Time No Known Allergies Allergy Verified 08/29/16 02:42 Physical Exam - Constitutional Appears: Well - Head Exam Head Exam: ATRAUMATIC, NORMAL INSPECTION, NORMOCEPHALIC - Eye Exam Eye Exam: EOMI, Normal appearance, PERRL Pupil Exam: NORMAL ACCOMODATION, PERRL - ENT Exam ENT Exam: Mucous Membranes Moist, Normal Exam - Neck Exam Neck exam: Positive for: Normal Inspection - Respiratory Exam Respiratory Exam: Decreased Breath Sounds - Cardiovascular Exam Cardiovascular Exam: REGULAR RHYTHM, +S1, +S2 - GI/Abdominal Exam GI & Abdominal Exam: Diminished Bowel Sounds, Soft - Rectal Exam Rectal Exam: Deferred Results - Vital Signs Recent Vital Signs: Last Vital Signs Temp 98.0 F 08/29/16 02:38 Pulse 105 H 08/29/16 02:38 Resp 20 08/29/16 02:38 BP 137/85 08/29/16 02:38 Pulse Ox 96 08/29/16 04:36 - Labs Result Diagrams: 08/29/16 03:18 08/29/16 03:18
[2016-08-29] MEDS ORDERED: Sodium Chloride 0.9% 1,000 ML IV SCH (07:45)
[2016-08-29] MEDS: Lactated Ringer's 1,000 ML IV SCH ×3 (08:41→18:34)
[2016-08-29] MEDS ORDERED: Lactated Ringer's 1,000 ML ONE (09:12)
--- NOTE | 2016-08-29 09:15 | CP.PCM.CON ---
<Geremias Rivero - Last Filed: 08/29/16 09:16> History of Present Illness - History of Present Illness History of Present Illness: PGY5 GI Fellow Consult Note Patient is a 26yo male with PMHx significant for pancreatitis who presented to the ED with complaint of abdominal pain. He states that two days ago he developed sudden onset 7/10 pulsating, throbbing RUQ abdominal pain which spread to the epigastrium and eventually the right flank. He tried using antacid medications and Pepto Bismol without much relief and thus came to the ED for evaluation. Admits to drinking heavily >6 beers as well as smoking tobacco products within the past week. He has previously been noted to drink heavily has presented to the ED a number of times with similar complaints previously and has been diagnosed with pancreatitis at least 5 times. Two prior U/S have not revealed gallstones. Denies any fever, chills but admits to nausea , bloating, constipation. PMHx: obseity, pancreatitis PSHx: Denies FHx: DM Social: +EtOH use, +tobacco use, denies any illicit drug use Endo: No prior endoscopic evaluations Review of Systems - Constitutional Constitutional: absent: Chills, Fever, Weight Loss - EENT Eyes: absent: Change in Vision Nose/Mouth/Throat: absent: Sore Throat - Cardiovascular Cardiovascular: absent: Chest Pain, Dyspnea, Edema - Respiratory Respiratory: absent: Cough, Dyspnea, Excessive Mucous Production - Gastrointestinal Gastrointestinal: Abdominal Pain, Bloating, Constipation, Cramping. absent: Diarrhea, Dysphagia, Heartburn, Hematemesis, Hematochezia, Melena, Nausea, Vomiting - Genitourinary Genitourinary: absent: Dysuria, Urinary Frequency, Urinary Urgency - Musculoskeletal Musculoskeletal: absent: Back Pain, Neck Pain - Integumentary Integumentary: absent: New Lesions, Rash - Neurological Neurological: absent: Dizziness, Numbness, Focal Weakness - Psychiatric Psychiatric: absent: Anxiety, Depression - Endocrine Endocrine: absent: Polydipsia, Polyphagia, Polyuria - Hematologic/Lymphatic Hematologic: absent: Easy Bleeding, Easy Bruising, Lymphadenopathy Past Patient History - Infectious Disease Hx of Infectious Diseases: None - Past Medical History & Family History Past Medical History?: Yes - Past Social History Smoking Status: Current Some Days Smoker - CARDIAC Hx Cardiac Disorders: No - PULMONARY Hx Asthma: Yes - NEUROLOGICAL Hx Neurological Disorder: No - HEENT Hx HEENT Problems: No - RENAL Hx Chronic Kidney Disease: No - ENDOCRINE/METABOLIC Hx Endocrine Disorders: No - HEMATOLOGICAL/ONCOLOGICAL Hx Blood Disorders: No - INTEGUMENTARY Hx Dermatological Problems: No - MUSCULOSKELETAL/RHEUMATOLOGICAL Hx Musculoskeletal Disorders: No Hx Falls: No - GASTROINTESTINAL Hx Gastritis: Yes Hx Pancreatitis: Yes - GENITOURINARY/GYNECOLOGICAL Hx Genitourinary Disorders: No - PSYCHIATRIC Hx Substance Use: No - SURGICAL HISTORY Hx Surgeries: No - ANESTHESIA Hx Anesthesia: No Meds Allergies/Adverse Reactions: Allergies Allergy/AdvReac Type Severity Reaction Status Date / Time No Known Allergies Allergy Verified 08/29/16 02:42 - Medications Medications: Current Medications Famotidine (Pepcid) 20 mg IVP BID [facility] Lactated Ringer's (Lactated Ringer's) 1,000 mls @ 200 mls/hr IV .Q5H [facility] Last Admin: 08/29/16 08:41 Dose: 200 mls/hr Morphine Sulfate (Morphine) 4 mg IVP Q4 PRN PRN Reason: pain Physical Exam - Constitutional Appears: Non-toxic, No Acute Distress, Other (obese) - Eye Exam Eye Exam: EOMI, PERRL - ENT Exam ENT Exam: Mucous Membranes Moist - Respiratory Exam Respiratory Exam: Clear to Auscultation Bilateral. absent: Rales, Rhonchi, Wheezes - Cardiovascular Exam Cardiovascular Exam: RRR, +S1, +S2 - GI/Abdominal Exam GI & Abdominal Exam: Normal Bowel Sounds, Soft, Tenderness (RUQ, right flank). absent: Distended, Firm, Guarding, Organomegaly, Rigid - Extremities Exam Extremities exam: Positive for: normal inspection. Negative for: pedal edema - Neurological Exam Neurological exam: Alert, Oriented x3 - Psychiatric Exam Psychiatric exam: Normal Affect, Normal Mood - Skin Skin Exam: Dry, Warm Results - Vital Signs Recent Vital Signs: Last Vital Signs Temp 97.9 F 08/29/16 07:21 Pulse 93 H 08/29/16 07:21 Resp 20 08/29/16 07:21 BP 127/85 08/29/16 07:21 Pulse Ox 97 08/29/16 07:21 - Labs Result Diagrams: 08/29/16 03:18 08/29/16 03:18 Assessment & Plan - Assessment and Plan (Free Text) Assessment: Patient is a 26yo male with PMHx significant for pancreatitis who presented to the ED with complaint of abdominal pain. -Acute pancreatitis -Obesity Plan: -IVF LR@200cc/hr -NPO for now; can advance to liquids if pain improved/patient wants to eat -Analgesia/antiemetics per primary service -Prior CT and U/S reviewed -Prior lipid panel unremarkable -Encourage abstinence from EtOH and tobacco given recurrence - Date & Time Date: 08/29/16 Time: 08:50 <Marcello Swartz - Last Filed: 08/29/16 10:07> Meds - Medications Medications: Current Medications Famotidine (Pepcid) 20 mg IVP BID [facility] Last Admin: 08/29/16 09:42 Dose: 20 mg Lactated Ringer's (Lactated Ringer's) 1,000 mls @ 200 mls/hr IV .Q5H [facility] Last Admin: 08/29/16 08:41 Dose: 200 mls/hr Morphine Sulfate (Morphine) 4 mg IVP Q4 PRN PRN Reason: pain Results - Vital Signs Recent Vital Signs: Last Vital Signs Temp 97.9 F 08/29/16 07:21 Pulse 88 08/29/16 09:14 Resp 20 08/29/16 09:14 BP 94/64 L 08/29/16 09:44 Pulse Ox 96 08/29/16 09:14 - Labs Result Diagrams: 08/29/16 03:18 08/29/16 03:18 Attending/Attestation - Attestation I have personally seen and examined this patient.: Yes I have fully participated in the care of the patient.: Yes I have reviewed all pertinent clinical information: Yes Notes (Text): 08/29/16 10:04 26 year old male h/o pancreatitis who presents with abdominal pain, found to have recurrent pancreatitis. 1. Acute pancreatitis Plan: -patient has had 3-4 recurrent episodes of pancreatitis -he does report intermittent binge drinking of alcohol and does associate exacerbations of pancreatitis with lifestyle indiscretions -he has had two prior abdominal US negative for gallstones -prior triglycerides in 2015 are normal -no history of complications of pancreatitis -recommend bowel rest/NPO and aggressive IV fluid resuscitation with LR at 200+ cc/hr -alcohol and smoking abstinence recommended
--- NOTE | 2016-08-29 13:34 | CP.PCM.CON ---
History of Present Illness - History of Present Illness History of Present Illness: 26-year-old male with past medical history of morbid obesity, asthma, alcohol- related pancreatitis in the past is admitted with the acute pancreatitis. Patient complains of abdominal pain and dyspnea. He denies any fever, chills, chest tightness, cough or wheezing. He reports that his asthma has been at baseline. Patient is noncompliant with his medications and admits to binge drinking. Review of Systems - Review of Systems All systems: reviewed and no additional remarkable complaints except (As per HPI ) Past Patient History - Infectious Disease Hx of Infectious Diseases: None - Past Medical History & Family History Past Medical History?: Yes - Past Social History Smoking Status: Current Some Days Smoker - CARDIAC Hx Cardiac Disorders: No - PULMONARY Hx Asthma: Yes - NEUROLOGICAL Hx Neurological Disorder: No - HEENT Hx HEENT Problems: No - RENAL Hx Chronic Kidney Disease: No - ENDOCRINE/METABOLIC Hx Endocrine Disorders: No - HEMATOLOGICAL/ONCOLOGICAL Hx Blood Disorders: No - INTEGUMENTARY Hx Dermatological Problems: No - MUSCULOSKELETAL/RHEUMATOLOGICAL Hx Musculoskeletal Disorders: No Hx Falls: No - GASTROINTESTINAL Hx Gastritis: Yes Hx Pancreatitis: Yes - GENITOURINARY/GYNECOLOGICAL Hx Genitourinary Disorders: No - PSYCHIATRIC Hx Substance Use: No - SURGICAL HISTORY Hx Surgeries: No - ANESTHESIA Hx Anesthesia: No Meds Allergies/Adverse Reactions: Allergies Allergy/AdvReac Type Severity Reaction Status Date / Time No Known Allergies Allergy Verified 08/29/16 02:42 - Medications Medications: Current Medications Famotidine (Pepcid) 20 mg IVP BID [facility] Last Admin: 08/29/16 09:42 Dose: 20 mg Lactated Ringer's (Lactated Ringer's) 1,000 mls @ 200 mls/hr IV .Q5H [facility] Last Admin: 08/29/16 13:10 Dose: 200 mls/hr Morphine Sulfate (Morphine) 4 mg IVP Q4 PRN PRN Reason: pain Last Admin: 08/29/16 11:19 Dose: 4 mg Physical Exam - Eye Exam Eye Exam: Normal appearance - ENT Exam ENT Exam: Mucous Membranes Moist - Respiratory Exam Respiratory Exam: Clear to Auscultation Bilateral - Cardiovascular Exam Cardiovascular Exam: REGULAR RHYTHM, +S1, +S2 - GI/Abdominal Exam GI & Abdominal Exam: Hypoactive Bowel Sounds, Tenderness - Extremities Exam Extremities exam: Positive for: normal inspection Results - Vital Signs Recent Vital Signs: Last Vital Signs Temp 97.9 F 08/29/16 07:21 Pulse 78 08/29/16 13:09 Resp 18 08/29/16 13:09 BP 138/82 08/29/16 13:09 Pulse Ox 100 08/29/16 13:09 - Labs Result Diagrams: 08/31/16 11:41 08/31/16 11:41 Assessment & Plan - Assessment and Plan (Free Text) Assessment: History of asthma Dyspnea Acute pancreatitis Morbid obesity MATHEUS/OHS Dyspnea is likely due to pain Asthma is at baseline DuoNeb's Oxygen No need for steroids N.p.o. IV fluids We will need obstructive sleep apnea workup as outpatient
[2016-08-29] MEDS ORDERED: HYDROmorphone 0.5 mg/0.5 ml ISec IVP STA (22:28)
[2016-08-30] MEDS: Lactated Ringer's 1,000 ML IV SCH ×4 (02:19→21:47)
[2016-08-30] MEDS ORDERED: HYDROmorphone 0.5 mg/0.5 ml ISec IVP ONE (05:00)
[2016-08-30 08:11] VITALS: RESP 20
--- NOTE | 2016-08-30 08:23 | CP.PCM.PN ---
<Belén Lay - Last Filed: 08/30/16 11:48> Subjective - Date & Time of Evaluation Date of Evaluation: 08/30/16 Time of Evaluation: 07:00 - Subjective Subjective: PGY4 GI Fellow Progress Note Patient seen and examined at beside. Pt reports feeling a little better this morning, abdominal pain has slightly improved from admission however does report discomfort in LLQ and mild epigastric pain. Denies nausea or vomiting. Reports binge drinking 3 wks ago. A 12pt ROS completed and was negative except as mentioned above. Objective - Vital Signs/Intake and Output Vital Signs (last 24 hours): Temp Pulse Resp BP Pulse Ox 98.0 F 101 H 20 139/74 96 08/30/16 07:35 08/30/16 07:35 08/30/16 07:35 08/30/16 07:35 08/30/16 07:35 - Medications Medications: Current Medications Famotidine (Pepcid) 20 mg IVP BID [facility] Last Admin: 08/29/16 18:38 Dose: 20 mg Lactated Ringer's (Lactated Ringer's) 1,000 mls @ 200 mls/hr IV .Q5H [facility] Last Admin: 08/30/16 06:53 Dose: 200 mls/hr Morphine Sulfate (Morphine) 4 mg IVP Q4H PRN PRN Reason: Pain, severe (8-10) Pneumococcal Polyvalent Vaccine (Pneumovax 23 Vaccine) 0.5 ml IM .ONCE ONE Stop: 09/01/16 10:01 - Constitutional Appears: Well, No Acute Distress - Head Exam Head Exam: ATRAUMATIC, NORMOCEPHALIC - Eye Exam Eye Exam: EOMI. absent: Scleral icterus Pupil Exam: NORMAL ACCOMODATION, PERRL - ENT Exam ENT Exam: Mucous Membranes Moist, Normal Exam - Neck Exam Neck Exam: Full ROM, Normal Inspection - Respiratory Exam Respiratory Exam: Clear to Ausculation Bilateral, NORMAL BREATHING PATTERN - Cardiovascular Exam Cardiovascular Exam: REGULAR RHYTHM, RRR, +S1, +S2 - GI/Abdominal Exam GI & Abdominal Exam: Soft, Tenderness, Normal Bowel Sounds Additional comments: Mild TTP in epigastric and RUQ - Rectal Exam Rectal Exam: Deferred - Extremities Exam Extremities Exam: Full ROM, Normal Inspection - Neurological Exam Neurological Exam: Alert, Awake - Psychiatric Exam Psychiatric exam: Normal Affect, Normal Mood - Skin Skin Exam: Normal Color, Warm Assessment and Plan - Assessment and Plan (Free Text) Assessment: This is a 26y M with recurrent pancreatitis with history of binge alcohol use. Pt presented to ER with abdominal pain three days prior and associated nausea. Pt has had 3 prior hospital admissions for acute pancreatitis with Abdominal CT and US negative for gallstones but positive for fatty liver infiltrate. Lipid profile from November 2014 was wnl cholesterol 147, triglyceride 96, LDL 94, HLD 29. During this admission pt's lipase was 11, 570 received IVF bolus 2L and is currently on maintenance IVF LR 200cc/hr. Acute Mild Pancreatitis Morbid Obesity Alcohol use Plan: Continue Aggressive IVFs Monitor BUN/Cr labs from this morning, BUN is elevated to 15 from pt's baseline of 8, Cr at baseline Pt will benefit from IVF bolus at 20cc/kg if BUN still high, and continue 3cc/ kg of maintenance fluids Pt currently NPO, will advance diet to clear liquids Continue pain medications prn Will order Lipid Profile , last profile from 11/2015 Will order Pancreatic Protocol CT scan to r/o any structural abnormality Alcohol and tobacco cessation counseled, will order toxicology screen Will continue to follow patient <Ramon Ramirez - Last Filed: 08/30/16 13:03> Objective - Vital Signs/Intake and Output Vital Signs (last 24 hours): Temp Pulse Resp BP Pulse Ox 98.0 F 101 H 20 139/74 96 08/30/16 07:35 08/30/16 07:35 08/30/16 07:35 08/30/16 07:35 08/30/16 07:35 - Medications Medications: Current Medications Famotidine (Pepcid) 20 mg IVP BID [facility] Last Admin: 08/30/16 09:06 Dose: 20 mg Lactated Ringer's (Lactated Ringer's) 1,000 mls @ 200 mls/hr IV .Q5H [facility] Last Admin: 08/30/16 06:53 Dose: 200 mls/hr Morphine Sulfate (Morphine) 4 mg IVP Q4H PRN PRN Reason: Pain, severe (8-10) Last Admin: 08/30/16 09:07 Dose: 4 mg Pneumococcal Polyvalent Vaccine (Pneumovax 23 Vaccine) 0.5 ml IM .ONCE ONE Stop: 09/01/16 10:01 - Labs Labs: 08/30/16 11:21 08/30/16 11:21 Attending/Attestation - Attestation I have personally seen and examined this patient.: Yes I have fully participated in the care of the patient.: Yes I have reviewed all pertinent clinical information, including history, physical exam and plan: Yes Notes (Text): 08/30/16 12:59 I have seen and examined patient with GI fellow. No acute events overnight, he still continues to endorse generalized abdominal pain but denies nausea, vomiting, diarrhea, fever/chills. He remains NPO, review of vitals from today shows tachycardia. Morbid obesity Abdominal pain, pancreatitis - unclear etiology - Continue with aggressive IVF hydration therapy - Clear liquid diet as tolerated - Pain control - Awaiting results of lipid profile, obtain IgG4 subset panel - Given recurrent episodes of pancreatitis, would obtain pancreatic protocol CT to evaluate for pseudocyst or other parenchymal abnormality - Will continue to monitor patient clinical course
[2016-08-30] MEDS ORDERED: Morphine 4 MG/ML VIAL IVP PRN (10:00)
[2016-08-30] MEDS ORDERED: HYDROmorphone 1 mg/ml ISec IVP ONE (11:15)
[2016-08-30 11:46] LABS: ALBUMIN 3.6 g/dL (3.5-5.0)
[2016-08-30 11:48] LABS: AMYLASE 230 U/L (30-110); BASO # 0.1 K/uL (0.0-0.2); BASO % 0.9 % (0.0-2.0); EOS # 0.3 K/uL (0.0-0.7); HEMOGLOBIN 14.8 g/dL (12.0-18.0); LYMPH # 2.6 K/uL (1.0-4.3); LYMPH % 19.5 % (20.0-40.0); MEAN CELL VOLUME 78.7 fL (80.0-94.0); MEAN CORPUSCULAR HEMOGLOBIN 26.2 pg (27.0-31.0); MEAN CORPUSCULAR HGB CONC 33.3 g/dL (33.0-37.0); MEAN PLATELET VOLUME 7.8 fL (7.2-11.7); MONO # 0.8 K/uL (0.0-0.8); MONO % 6.4 % (0.0-10.0); NEUT # 9.4 K/uL (1.8-7.0); NEUT % 71.2 % (50.0-75.0); RBC 5.64 Mil/uL (4.40-5.90); RED CELL DISTRIBUTION WIDTH 14.5 % (11.5-14.5); WHITE BLOOD COUNT 13.3 K/uL (4.8-10.8)
[2016-08-30 11:49] LABS: ALT/SGPT 22 U/L (21-72); AST/SGOT 21 U/L (17-59); BLOOD UREA NITROGEN 7 mg/dL (9-20); GFR AFRICAN-AMERICAN > 60; GFR NON-AFRICAN AMERICAN > 60; LIPASE 676 U/L (23-300)
[2016-08-30 11:50] LABS: CALCIUM 8.9 mg/dl (8.6-10.4); HDL CHOLESTEROL 38 mg/dL (30-70); MAGNESIUM 1.7 mg/dL (1.6-2.3)
[2016-08-30 12:01] LABS: LDL CHOLESTEROL 80 mg/dL (0-129)
--- NOTE | 2016-08-30 13:02 | CP.PCM.PN ---
Subjective - Date & Time of Evaluation Date of Evaluation: 08/30/16 Time of Evaluation: 13:02 - Subjective Subjective: Coverage for Dr. Trevizo Patient seen and examined Complaint of abdominal pain Improving lipase No events overnight Objective - Vital Signs/Intake and Output Vital Signs (last 24 hours): Temp Pulse Resp BP Pulse Ox 98.0 F 101 H 20 139/74 96 08/30/16 07:35 08/30/16 07:35 08/30/16 07:35 08/30/16 07:35 08/30/16 07:35 - Medications Medications: Current Medications Famotidine (Pepcid) 20 mg IVP BID [facility] Last Admin: 08/30/16 09:06 Dose: 20 mg Lactated Ringer's (Lactated Ringer's) 1,000 mls @ 200 mls/hr IV .Q5H [facility] Last Admin: 08/30/16 06:53 Dose: 200 mls/hr Morphine Sulfate (Morphine) 4 mg IVP Q4H PRN PRN Reason: Pain, severe (8-10) Last Admin: 08/30/16 09:07 Dose: 4 mg Pneumococcal Polyvalent Vaccine (Pneumovax 23 Vaccine) 0.5 ml IM .ONCE ONE Stop: 09/01/16 10:01 - Labs Labs: 08/30/16 11:21 08/30/16 11:21 - Head Exam Head Exam: NORMAL INSPECTION - Eye Exam Eye Exam: Normal appearance - ENT Exam ENT Exam: Mucous Membranes Moist - Respiratory Exam Respiratory Exam: Clear to Ausculation Bilateral - Cardiovascular Exam Cardiovascular Exam: REGULAR RHYTHM, +S1, +S2 - GI/Abdominal Exam GI & Abdominal Exam: Tenderness, Normal Bowel Sounds - Extremities Exam Extremities Exam: Normal Inspection Assessment and Plan - Assessment and Plan (Free Text) Assessment: Acute pancreatitis Asthma Morbid obesity MATHEUS/OHS Continue IV fluids GI follow-up Continue trend lipase Patient started on clear liquids DuoNeb's Oxygen supplementation MATHEUS workup as outpatient
[2016-08-30] MEDS ORDERED: Iohexol 240 (50 ml) PO ONE (13:15)
[2016-08-30] MEDS ORDERED: Iodixanol 320 MG/ML 100 ML BOTTLE IV ONE (16:21)
--- NOTE | 2016-08-30 18:16 | CT ---
PROCEDURE: CT Abdomen and Pelvis with contrast HISTORY: pancreatitis, abdominal pain COMPARISON: 12/07/2015. Summary of findings on the comparison examination:Findings consistent with mild acute pancreatitis TECHNIQUE: Contrast dose: 100 cc Visipaque 320 Radiation dose: Total exam DLP = 2649.07 mGy-cm. This CT exam was performed using one or more of the following dose reduction techniques: Automated exposure control, adjustment of the mA and/or kV according to patient size, and/or use of iterative reconstruction technique. FINDINGS: LOWER THORAX: Unremarkable. LIVER: Hepatic steatosis. No focal masses. No intrahepatic bile duct dilatation or perihepatic ascites. GALLBLADDER AND BILE DUCTS: Unremarkable. PANCREAS: Evidence of mild pancreatitis less severe than that seen previously. No evidence of necrotizing pancreatitis. No evidence of pseudocyst formation. No appreciable peripancreatic retroperitoneal fluid collections. SPLEEN: Unremarkable. ADRENALS: Unremarkable. No mass. KIDNEYS AND URETERS: Unremarkable. No hydronephrosis. No solid mass. VASCULATURE: Unremarkable. No aortic aneurysm. BOWEL: Diverticulosis without an acute inflammatory component or other associated pathologic process. APPENDIX: Normal appendix. PERITONEUM: Unremarkable. No free fluid. No free air. LYMPH NODES: Unremarkable. No enlarged lymph nodes. BLADDER: Unremarkable. REPRODUCTIVE: Unremarkable. BONES: No acute fracture. OTHER FINDINGS: None. IMPRESSION: Evidence of mild acute pancreatitis without evidence of necrotizing pancreatitis.
[2016-08-30] MEDS ORDERED: HYDROmorphone 0.5 mg/0.5 ml ISec IVP STA (21:38)
[2016-08-31] MEDS: Lactated Ringer's 1,000 ML IV SCH ×4 (01:45→17:34)
--- NOTE | 2016-08-31 07:21 | CP.PCM.PN ---
<Geremias Rivero - Last Filed: 08/31/16 08:37> Subjective - Date & Time of Evaluation Date of Evaluation: 08/31/16 Time of Evaluation: 07:30 - Subjective Subjective: PGY5 GI Fellow Progress Note Patient seen and examined bedside this morning. He is laying face down on his bed as this is the only comfortable position for him presently. States that pain continues to come in waves and is predominantly located in the low-mid back. Some occasional nausea. Tolerating about 50% liquid diet tray. Does not wish to eat solid food just yet. 2 days without BM. 12 system ROS performed and negative except where stated. Objective - Vital Signs/Intake and Output Vital Signs (last 24 hours): Temp Pulse Resp BP Pulse Ox 97.7 F 126 H 20 154/60 H 95 08/31/16 02:19 08/31/16 02:19 08/31/16 02:19 08/31/16 02:19 08/31/16 02:19 Intake and Output: 08/31/16 08/31/16 06:59 18:59 Intake Total 1900 Output Total 500 Balance 1400 - Medications Medications: Current Medications Famotidine (Pepcid) 20 mg IVP BID [facility] Last Admin: 08/30/16 17:27 Dose: 20 mg Hydromorphone HCl (Dilaudid) 1 mg IVP Q4H PRN PRN Reason: pain Last Admin: 08/31/16 05:53 Dose: 1 mg Lactated Ringer's (Lactated Ringer's) 1,000 mls @ 200 mls/hr IV .Q5H [facility] Last Admin: 08/31/16 05:58 Dose: 200 mls/hr Pneumococcal Polyvalent Vaccine (Pneumovax 23 Vaccine) 0.5 ml IM .ONCE ONE Stop: 09/01/16 10:01 - Labs Labs: 08/30/16 11:21 08/30/16 11:21 - Constitutional Appears: Other (morbidly obese) - Eye Exam Eye Exam: EOMI, PERRL - ENT Exam ENT Exam: Mucous Membranes Moist - Respiratory Exam Respiratory Exam: Clear to Ausculation Bilateral. absent: Rales, Rhonchi, Wheezes - Cardiovascular Exam Cardiovascular Exam: Tachycardia, REGULAR RHYTHM, +S1, +S2 - GI/Abdominal Exam GI & Abdominal Exam: Soft, Normal Bowel Sounds. absent: Distended, Firm, Guarding, Rigid, Tenderness, Organomegaly - Back Exam Back Exam: absent: CVA tenderness (L), CVA tenderness (R), paraspinal tenderness , vertebral tenderness - Neurological Exam Neurological Exam: Alert, Awake, Oriented x3 - Psychiatric Exam Psychiatric exam: Normal Affect, Normal Mood - Skin Skin Exam: Dry, Warm Assessment and Plan - Assessment and Plan (Free Text) Assessment: Patient is a 26yo male with PMHx significant for pancreatitis who presented to the ED with complaint of abdominal pain. -Acute pancreatitis, resolving -Morbid obesity Plan: -Change IVF to LR@150cc/hr -Change Dilaudid to Q3H PRN -Tolerating liquids though with occasional nausea; continue on liquids, can advance for dinner if patient wishes -CT pancreas reviewed; mild pancreatitis but no evidence for necrosis or pseudocyst formation -Analgesia/antiemetics per primary service -Slight WBC elevation and dirty U/A, consider urine cx - kidneys/bladder unremarkable on CT -Lipid panel unremarkable -Encourage abstinence from EtOH and tobacco given recurrence <Marcello Swartz - Last Filed: 08/31/16 09:16> Objective - Vital Signs/Intake and Output Vital Signs (last 24 hours): Temp Pulse Resp BP Pulse Ox 98.1 F 105 H 20 135/85 95 08/31/16 07:00 08/31/16 07:00 08/31/16 07:00 08/31/16 07:00 08/31/16 07:00 Intake and Output: 08/31/16 08/31/16 06:59 18:59 Intake Total 1900 Output Total 500 Balance 1400 - Medications Medications: Current Medications Famotidine (Pepcid) 20 mg IVP BID [facility] Last Admin: 08/30/16 17:27 Dose: 20 mg Hydromorphone HCl (Dilaudid) 1 mg IVP Q3H PRN PRN Reason: pain Lactated Ringer's (Lactated Ringer's) 1,000 mls @ 150 mls/hr IV .Q6H40M [facility] Pneumococcal Polyvalent Vaccine (Pneumovax 23 Vaccine) 0.5 ml IM .ONCE ONE Stop: 09/01/16 10:01 - Labs Labs: 08/30/16 11:21 08/30/16 11:21 Attending/Attestation - Attestation I have personally seen and examined this patient.: Yes I have fully participated in the care of the patient.: Yes I have reviewed all pertinent clinical information, including history, physical exam and plan: Yes Notes (Text): 08/31/16 09:15 26 year old male h/o pancreatitis who presents with abdominal pain, found to have recurrent pancreatitis. 1. Acute pancreatitis Plan: -patient has had 3-4 recurrent episodes of pancreatitis -he does report intermittent binge drinking of alcohol and does associate exacerbations of pancreatitis with lifestyle indiscretions -he has had two prior abdominal US negative for gallstones -prior triglycerides in 2015 are normal and have been repeated and are normal -no history of complications of pancreatitis -alcohol and smoking abstinence recommended -received adequate resuscitation with IV fluids -CT abdomen shows no local complications or necrosis -can reduce fluids to 150cc/hr -continue pain medications and anti-emetics as needed -advance diet as tolerated to low fat
[2016-08-31 11:45] LABS: BASO # 0.1 K/uL (0.0-0.2); BASO % 0.7 % (0.0-2.0); EOS # 0.2 K/uL (0.0-0.7); EOS % 1.8 % (0.0-4.0); HEMOGLOBIN 14.1 g/dL (12.0-18.0); LYMPH # 2.2 K/uL (1.0-4.3); LYMPH % 16.7 % (20.0-40.0); MEAN CELL VOLUME 79.6 fL (80.0-94.0); MEAN CORPUSCULAR HEMOGLOBIN 26.6 pg (27.0-31.0); MEAN CORPUSCULAR HGB CONC 33.4 g/dL (33.0-37.0); MEAN PLATELET VOLUME 7.5 fL (7.2-11.7); MONO % 7.8 % (0.0-10.0); NEUT # 9.7 K/uL (1.8-7.0); NRBC % 0.1 % (0.0-2.0); RBC 5.32 Mil/uL (4.40-5.90); RED CELL DISTRIBUTION WIDTH 14.4 % (11.5-14.5); WHITE BLOOD COUNT 13.3 K/uL (4.8-10.8)
[2016-08-31 11:58] LABS: GFR AFRICAN-AMERICAN > 60; GFR NON-AFRICAN AMERICAN > 60
[2016-08-31 11:59] LABS: BLOOD UREA NITROGEN 8 mg/dL (9-20); CALCIUM 8.7 mg/dl (8.6-10.4)
--- NOTE | 2016-08-31 13:03 | CP.PCM.PN ---
Subjective - Date & Time of Evaluation Date of Evaluation: 08/31/16 Time of Evaluation: 13:02 - Subjective Subjective: Patient seen and examined No events overnight Objective - Vital Signs/Intake and Output Vital Signs (last 24 hours): Temp Pulse Resp BP Pulse Ox 98.1 F 105 H 20 135/85 95 08/31/16 07:00 08/31/16 07:00 08/31/16 07:00 08/31/16 07:00 08/31/16 07:00 Intake and Output: 08/31/16 08/31/16 06:59 18:59 Intake Total 1900 Output Total 500 Balance 1400 - Medications Medications: Current Medications Famotidine (Pepcid) 20 mg IVP BID [facility] Last Admin: 08/31/16 09:21 Dose: 20 mg Hydromorphone HCl (Dilaudid) 1 mg IVP Q3H PRN PRN Reason: pain Last Admin: 08/31/16 09:20 Dose: 1 mg Lactated Ringer's (Lactated Ringer's) 1,000 mls @ 150 mls/hr IV .Q6H40M [facility] Pneumococcal Polyvalent Vaccine (Pneumovax 23 Vaccine) 0.5 ml IM .ONCE ONE Stop: 09/01/16 10:01 - Labs Labs: 08/31/16 11:41 08/31/16 11:41 - Head Exam Head Exam: NORMAL INSPECTION - Eye Exam Eye Exam: Normal appearance - ENT Exam ENT Exam: Mucous Membranes Moist - Respiratory Exam Respiratory Exam: Clear to Ausculation Bilateral - Cardiovascular Exam Cardiovascular Exam: REGULAR RHYTHM - GI/Abdominal Exam GI & Abdominal Exam: Normal Bowel Sounds - Extremities Exam Extremities Exam: Normal Inspection - Neurological Exam Neurological Exam: Alert, Oriented x3 Assessment and Plan - Assessment and Plan (Free Text) Assessment: History of asthma Dyspnea Acute pancreatitis Morbid obesity MATHEUS/OHS Asthma is at baseline DuoNeb's Oxygen Advance diet as tolerated Pain Control IV fluids We will need obstructive sleep apnea workup as outpatient
[2016-08-31 19:20] LABS: BARBITURATES, UR NEGATIVE (NEGATIVE)
[2016-08-31 19:21] LABS: BENZODIAZEPINES, UR NEGATIVE (NEGATIVE)
[2016-08-31 19:25] LABS: OPIATES, UR POSITIVE (NEGATIVE); PHENCYCLIDINE, UR NEGATIVE (NEGATIVE)
[2016-09-01] MEDS: Lactated Ringer's 1,000 ML IV SCH ×6 (02:00→21:55)
--- NOTE | 2016-09-01 09:50 | CP.PCM.PN ---
<Kacie Lamb - Last Filed: 09/01/16 09:59> Subjective - Date & Time of Evaluation Date of Evaluation: 09/01/16 Time of Evaluation: 09:45 - Subjective Subjective: Gastroenterology Fellow/PGY5 Progress Note Patient standing at bedside. He notes improving abdominal and back pain, pain scale 6/10. Tolerating liquid diet,. Denies bowel movement for two days. A 12- point review of systems negative except for as above. Objective - Vital Signs/Intake and Output Vital Signs (last 24 hours): Temp Pulse Resp BP Pulse Ox 98.4 F 105 H 20 145/88 97 08/31/16 23:40 08/31/16 23:40 08/31/16 23:40 08/31/16 23:40 08/31/16 23:40 - Medications Medications: Current Medications Famotidine (Pepcid) 20 mg IVP BID [facility] Last Admin: 08/31/16 17:33 Dose: 20 mg Hydromorphone HCl (Dilaudid) 1 mg IVP Q3H PRN PRN Reason: pain Last Admin: 09/01/16 06:15 Dose: 1 mg Lactated Ringer's (Lactated Ringer's) 1,000 mls @ 150 mls/hr IV .Q6H40M [facility] Last Admin: 09/01/16 06:18 Dose: 150 mls/hr Pneumococcal Polyvalent Vaccine (Pneumovax 23 Vaccine) 0.5 ml IM .ONCE ONE Stop: 09/01/16 10:01 Polyethylene Glycol (Miralax) 17 gm PO DAILY [facility] - Labs Labs: 08/31/16 11:41 08/31/16 11:41 - Constitutional Appears: Non-toxic, No Acute Distress - Head Exam Head Exam: ATRAUMATIC, NORMOCEPHALIC - Eye Exam Eye Exam: EOMI, PERRL Pupil Exam: PERRL. absent: Miosis, Mydriatic - ENT Exam ENT Exam: Mucous Membranes Moist, Normal Oropharynx - Neck Exam Neck Exam: Full ROM, Normal Inspection - Respiratory Exam Respiratory Exam: Clear to Ausculation Bilateral. absent: Rales, Rhonchi, Wheezes - Cardiovascular Exam Cardiovascular Exam: RRR, +S1, +S2. absent: Gallop, Rubs - GI/Abdominal Exam GI & Abdominal Exam: Soft, Tenderness, Normal Bowel Sounds. absent: Distended, Firm, Guarding, Rigid, Organomegaly, Rebound Additional comments: left upper abdomen to epigastric discomfort - Extremities Exam Extremities Exam: Full ROM. absent: Pedal Edema - Neurological Exam Neurological Exam: Alert, Awake - Psychiatric Exam Psychiatric exam: Normal Affect, Normal Mood - Skin Skin Exam: Dry, Intact, Normal Color, Warm Assessment and Plan - Assessment and Plan (Free Text) Assessment: 26 year old male wit history of morbid obesity and recurrent pancreatitis previously secondary to binge alcohol use. Active treatment of acute mild pancreatitis, unclear etiology. Ultrasound showed no gallstones and normal triglyceride level on lipid panel. CT pancreas protocol without necrosis or fluid collections. No prior EGD or colonoscopy. Plan: >tolerating clear liquids >advance to low fat diet >pending IgG4 >bowel regimen: Colace, Miralax >supportive care: PPI, antiemetics, pain control, gentle IVFs >outpatient follow up for recurrent pancreatitis re-evaluation and possible further elective outpatient workup <Marcello Swartz - Last Filed: 09/01/16 10:03> Objective - Vital Signs/Intake and Output Vital Signs (last 24 hours): Temp Pulse Resp BP Pulse Ox 98.4 F 105 H 20 145/88 97 08/31/16 23:40 08/31/16 23:40 08/31/16 23:40 08/31/16 23:40 08/31/16 23:40 - Medications Medications: Current Medications Famotidine (Pepcid) 20 mg IVP BID [facility] Last Admin: 08/31/16 17:33 Dose: 20 mg Hydromorphone HCl (Dilaudid) 1 mg IVP Q3H PRN PRN Reason: pain Last Admin: 09/01/16 06:15 Dose: 1 mg Lactated Ringer's (Lactated Ringer's) 1,000 mls @ 150 mls/hr IV .Q6H40M [facility] Last Admin: 09/01/16 06:18 Dose: 150 mls/hr Polyethylene Glycol (Miralax) 17 gm PO DAILY [facility] - Labs Labs: 08/31/16 11:41 08/31/16 11:41 Attending/Attestation - Attestation I have personally seen and examined this patient.: Yes I have fully participated in the care of the patient.: Yes I have reviewed all pertinent clinical information, including history, physical exam and plan: Yes Notes (Text): 09/01/16 10:02 26 year old male h/o pancreatitis who presents with abdominal pain, found to have recurrent pancreatitis. 1. Acute pancreatitis Plan: -patient has had 3-4 recurrent episodes of pancreatitis -he does report intermittent binge drinking of alcohol and does associate exacerbations of pancreatitis with lifestyle indiscretions -he has had two prior abdominal US negative for gallstones -prior triglycerides in 2014 are normal and have been repeated and are normal -no history of complications of pancreatitis -alcohol and smoking abstinence recommended -received adequate resuscitation with IV fluids -CT abdomen shows no local complications or necrosis -continue pain medications and anti-emetics as needed -advance diet as tolerated to low fat -will sign off at this time
[2016-09-01] MEDS ORDERED: Pneumococcal 23-Valent Vaccine IM ONE (10:00)
[2016-09-01] MEDS: POLYETHYLENE GLYCOL 3350 17 GM/Dose PACKET PO SCH (11:00)
--- NOTE | 2016-09-01 19:42 | CP.PCM.PN ---
Subjective - Date & Time of Evaluation Date of Evaluation: 09/01/16 Objective - Vital Signs/Intake and Output Vital Signs (last 24 hours): Temp Pulse Resp BP Pulse Ox 97.7 F 94 H 20 132/86 95 09/01/16 09:30 09/01/16 09:30 09/01/16 09:30 09/01/16 09:30 09/01/16 09:30 Intake and Output: 09/01/16 09/02/16 18:59 06:59 Intake Total 1600 Balance 1600 - Medications Medications: Current Medications Famotidine (Pepcid) 20 mg IVP BID [facility] Last Admin: 09/01/16 18:28 Dose: 20 mg Hydromorphone HCl (Dilaudid) 1 mg IVP Q3H PRN PRN Reason: pain Last Admin: 09/01/16 18:31 Dose: 1 mg Lactated Ringer's (Lactated Ringer's) 1,000 mls @ 150 mls/hr IV .Q6H40M [facility] Last Admin: 09/01/16 15:24 Dose: 150 mls/hr Polyethylene Glycol (Miralax) 17 gm PO DAILY [facility] Last Admin: 09/01/16 11:00 Dose: 17 gm - Labs Labs: 08/31/16 11:41 08/31/16 11:41
--- NOTE | 2016-09-01 20:22 | CP.PCM.PN ---
Objective - Vital Signs/Intake and Output Vital Signs (last 24 hours): Temp Pulse Resp BP Pulse Ox 98.4 F 95 H 20 136/90 96 09/01/16 16:00 09/01/16 16:00 09/01/16 16:00 09/01/16 16:00 09/01/16 16:00 Intake and Output: 09/01/16 09/02/16 18:59 06:59 Intake Total 1600 Balance 1600 - Medications Medications: Current Medications Famotidine (Pepcid) 20 mg IVP BID [facility] Last Admin: 09/01/16 18:28 Dose: 20 mg Hydromorphone HCl (Dilaudid) 1 mg IVP Q3H PRN PRN Reason: pain Last Admin: 09/01/16 18:31 Dose: 1 mg Lactated Ringer's (Lactated Ringer's) 1,000 mls @ 150 mls/hr IV .Q6H40M [facility] Last Admin: 09/01/16 15:24 Dose: 150 mls/hr Polyethylene Glycol (Miralax) 17 gm PO DAILY [facility] Last Admin: 09/01/16 11:00 Dose: 17 gm - Labs Labs: 08/31/16 11:41 08/31/16 11:41
[2016-09-01] MEDS: HYDROmorphone 1 mg/ml ISec IVP PRN (22:37)
[2016-09-02] MEDS: HYDROmorphone 1 mg/ml ISec IVP PRN ×2 (02:49→10:16)
[2016-09-02] MEDS: Lactated Ringer's 1,000 ML IV SCH ×2 (02:51→05:37)
[2016-09-02 07:59] LABS: BASO # 0.1 K/uL (0.0-0.2); BASO % 0.9 % (0.0-2.0); EOS # 0.4 K/uL (0.0-0.7); EOS % 4.8 % (0.0-4.0); HEMOGLOBIN 14.4 g/dL (12.0-18.0); LYMPH % 27.1 % (20.0-40.0); MEAN CELL VOLUME 79.4 fL (80.0-94.0); MEAN CORPUSCULAR HEMOGLOBIN 26.3 pg (27.0-31.0); MEAN CORPUSCULAR HGB CONC 33.2 g/dL (33.0-37.0); MEAN PLATELET VOLUME 7.4 fL (7.2-11.7); MONO # 0.5 K/uL (0.0-0.8); MONO % 7.3 % (0.0-10.0); NEUT # 4.5 K/uL (1.8-7.0); NEUT % 59.9 % (50.0-75.0); NRBC % 0.1 % (0.0-2.0); RBC 5.46 Mil/uL (4.40-5.90); RED CELL DISTRIBUTION WIDTH 14.8 % (11.5-14.5); WHITE BLOOD COUNT 7.5 K/uL (4.8-10.8)
[2016-09-02 08:12] LABS: BLOOD UREA NITROGEN 8 mg/dL (9-20); GFR AFRICAN-AMERICAN > 60; GFR NON-AFRICAN AMERICAN > 60; LIPASE 139 U/L (23-300)
[2016-09-02 08:13] LABS: CALCIUM 8.8 mg/dl (8.6-10.4)
[2016-09-02] MEDS: POLYETHYLENE GLYCOL 3350 17 GM/Dose PACKET PO SCH (10:19)
--- NOTE | 2016-09-02 11:30 | CP.PCM.PN ---
Subjective - Date & Time of Evaluation Date of Evaluation: 09/02/16 Time of Evaluation: 09:10 - Subjective Subjective: PGY3 Medicine Note - Dr. Chanda Trevizo's service: Patient seen and examined at bedside this AM. Patient reports mild abdominal pain. Patient eating low fat diet without nausea or vomiting or increased abdominal pain. Patient walking around his room without pain. Patient had multiple bowel movements last night secondary to Miralax. Patient denies dysuria , urinary frequency. Patient says he feels ready to go home. Objective - Vital Signs/Intake and Output Vital Signs (last 24 hours): Temp Pulse Resp BP Pulse Ox 98.3 F 99 H 20 113/77 99 09/02/16 00:12 09/02/16 00:12 09/02/16 00:12 09/02/16 00:12 09/02/16 00:12 Intake and Output: 09/02/16 09/02/16 06:59 18:59 Intake Total 300 Balance 300 - Medications Medications: Current Medications Famotidine (Pepcid) 20 mg IVP BID [facility] Last Admin: 09/02/16 10:19 Dose: 20 mg Hydromorphone HCl (Dilaudid) 1 mg IVP Q3H PRN PRN Reason: pain Last Admin: 09/02/16 10:16 Dose: 1 mg Polyethylene Glycol (Miralax) 17 gm PO DAILY [facility] Last Admin: 09/02/16 10:19 Dose: Not Given - Labs Labs: 09/02/16 07:51 09/02/16 07:51 - Constitutional Appears: Non-toxic, No Acute Distress - Head Exam Head Exam: NORMAL INSPECTION - Eye Exam Eye Exam: EOMI - ENT Exam ENT Exam: Mucous Membranes Moist - Respiratory Exam Respiratory Exam: Clear to Ausculation Bilateral, NORMAL BREATHING PATTERN. absent: Rales, Rhonchi, Wheezes - Cardiovascular Exam Cardiovascular Exam: REGULAR RHYTHM, +S1, +S2. absent: Gallop, Rubs, Murmur - GI/Abdominal Exam GI & Abdominal Exam: Soft, Normal Bowel Sounds. absent: Tenderness - Extremities Exam Extremities Exam: absent: Pedal Edema - Neurological Exam Neurological Exam: Alert, Awake, Oriented x3 - Psychiatric Exam Psychiatric exam: Normal Affect, Normal Mood - Skin Skin Exam: Normal Color, Warm Assessment and Plan - Assessment and Plan (Free Text) Assessment: Acute on Chronic Pancreatitis Tolerating low fat diet Dilaudid 1mg IVP Q3H PRN GI consult - Dr. Ramirez - help appreciated - recommend outpatient follow up Pending IgG4 [place] [address] on admission to 139 today Constipation Resolved with Miralax Abnormal UA 3+ LE, 41 WBC Asymptomatic F/U urine culture Prophylaxis Pepcid 20mg IvP BID Activity as tolerated SCDs
--- NOTE | 2016-09-02 15:31 | CP.PCM.PN ---
Subjective - Date & Time of Evaluation Date of Evaluation: 09/02/16 Time of Evaluation: 08:00 - Subjective Subjective: Clinically same Objective - Vital Signs/Intake and Output Vital Signs (last 24 hours): Temp Pulse Resp BP Pulse Ox 98.3 F 99 H 20 113/77 99 09/02/16 00:12 09/02/16 00:12 09/02/16 00:12 09/02/16 00:12 09/02/16 00:12 Intake and Output: 09/02/16 09/02/16 06:59 18:59 Intake Total 300 1580 Balance 300 1580 - Medications Medications: Current Medications Famotidine (Pepcid) 20 mg IVP BID [facility] Last Admin: 09/02/16 10:19 Dose: 20 mg Hydromorphone HCl (Dilaudid) 1 mg IVP Q3H PRN PRN Reason: pain Last Admin: 09/02/16 10:16 Dose: 1 mg Polyethylene Glycol (Miralax) 17 gm PO DAILY [facility] Last Admin: 09/02/16 10:19 Dose: Not Given - Labs Labs: 09/02/16 07:51 09/02/16 07:51
[2016-09-02 16:05] VITALS: BP 122/86; PULSE 72; TEMP 98.4; O2SAT 96
== END 2016-09-02 16:00 | disposition home or self-care (01) | DRG 204 ==
LOC: C.ER 02:27 → C.9E 04:46 → C.5T 13:53 → C.3T 09-01 09:03
PROVIDERS: ADMIT Internal Medicine Nephrology; ATTEND Internal Medicine Nephrology
DX: K85.90 Acute pancreatitis without necrosis or infection, unspecified (principal); E66.01 Morbid (severe) obesity due to excess calories; J45.909 Unspecified asthma, uncomplicated; K86.1 Other chronic pancreatitis; F17.210 Nicotine dependence, cigarettes, uncomplicated; Z91.14 Patient's other noncompliance with medication regimen; G47.33 Obstructive sleep apnea (adult) (pediatric); Z72.89 Other problems related to lifestyle; K59.00 Constipation, unspecified

== ENCOUNTER 2017-10-04 04:42 | Observation (INO) | payer MEDICAID ==
[2017-10-04 04:42] VITALS: BMI 50.1
[2017-10-04] MEDS ORDERED: Sodium Chloride 0.9% 1,000 ML IV ONE ×2 (05:21→06:41)
[2017-10-04 06:00] LABS: BASO % 0.5 % (0.0-2.0); EOS # 0.1 K/uL (0.0-0.7); EOS % 1.5 % (0.0-4.0); HEMOGLOBIN 15.7 g/dL (12.0-18.0); LYMPH % 10.7 % (20.0-40.0); MEAN CELL VOLUME 78.8 fL (80.0-94.0); MEAN CORPUSCULAR HEMOGLOBIN 26.9 pg (27.0-31.0); MEAN CORPUSCULAR HGB CONC 34.2 g/dL (33.0-37.0); MEAN PLATELET VOLUME 7.4 fL (7.2-11.7); MONO # 0.7 K/uL (0.0-0.8); MONO % 7.1 % (0.0-10.0); NEUT # 7.5 K/uL (1.8-7.0); NEUT % 80.2 % (50.0-75.0); NRBC % 0.1 % (0.0-2.0); RBC 5.84 Mil/uL (4.40-5.90); RED CELL DISTRIBUTION WIDTH 14.8 % (11.5-14.5); WHITE BLOOD COUNT 9.3 K/uL (4.8-10.8)
--- NOTE | 2017-10-04 06:11 | C.PDOC ---
History Of Present Illness 27 year old male presents to the ED complaining of swollen eyes, generalized headache, chills, and rhinorrhea. He reports he took Tylenol with mild relief. Notes he gets a headache when he moves his head. He denies any fever, nausea, vomiting, abdominal pain, SOB, chest pain, cough or any other associated symptoms. Time Seen by Provider: 10/04/17 05:06 Chief Complaint (Nursing): ENT Problem History Per: Patient History/Exam Limitations: no limitations Onset/Duration Of Symptoms: Days Current Symptoms Are (Timing): Still Present Severity: Mild Past Medical History Reviewed: Historical Data, Nursing Documentation, Vital Signs Vital Signs: Last Vital Signs Temp 99.3 F 10/04/17 06:51 Pulse 107 H 10/04/17 06:51 Resp 14 10/04/17 06:51 BP 96/64 L 10/04/17 06:51 Pulse Ox 95 10/04/17 06:51 - Medical History PMH: Asthma, Gastritis, Pancreatitis Denies: Chronic Kidney Disease Surgical History: No Surg Hx Family History: States: No Known Family Hx - Social History Hx Tobacco Use: No Hx Alcohol Use: Yes (2 x a year) Hx Substance Use: No - Immunization History Hx Tetanus Toxoid Vaccination: Yes Hx Influenza Vaccination: Yes Hx Pneumococcal Vaccination: Yes Review Of Systems Except As Marked, All Systems Reviewed And Found Negative. Constitutional: Positive for: Fever, Chills ENT: Positive for: Nose Discharge Cardiovascular: Negative for: Chest Pain Respiratory: Negative for: Cough, Shortness of Breath Gastrointestinal: Negative for: Nausea, Vomiting, Abdominal Pain, Diarrhea Neurological: Positive for: Headache Physical Exam - Physical Exam Appears: Non-toxic, No Acute Distress Skin: Warm, Dry Head: Atraumatic, Normacephalic, Tenderness (frontal sinus tenderness) Eye(s): bilateral: PERRL, EOMI, Other (mild periorbital swelling) Nose: Normal Oral Mucosa: Moist Throat: Normal, No Erythema, No Exudate Neck: Normal ROM, Trachea Midline, Supple Chest: Symmetrical Cardiovascular: Rhythm Regular Respiratory: Normal Breath Sounds, No Accessory Muscle Use, Other (Speaking full sentences) Gastrointestinal/Abdominal: Soft, Other (obese) Extremity: Normal ROM Extremity: Bilateral: Normal Color And Temperature, Normal ROM Neurological/Psych: Oriented x3, Normal Speech, Normal Cognition Gait: Steady ED Course And Treatment - Laboratory Results Result Diagrams: 10/04/17 05:56 10/04/17 05:56 O2 Sat by Pulse Oximetry: 96 (RA) Pulse Ox Interpretation: Normal Progress Note: Blood work and urine collected and sent to the lab for analysis. Pativen given Toradol 30mg IVP and IV fluids. On re-evaluation, pt remains tachycardic. Additional fluids ordered. Case endorsed to RICHELLE Metzger pending re- evaluation. Disposition - Disposition Disposition: HOME/ ROUTINE Disposition Time: 06:17 Condition: STABLE Additional Instructions: Follow up with your doctor in 1-2 days. Return to ER if symptoms persist or worsen. Prescriptions: Amoxicillin/Clavulanate [Augmentin 875 MG-125 MG] 1 tab PO BID #14 tab Fluticasone Nasal [Flonase] 1 actuation NS DAILY #1 spr Loratadine [Claritin] 10 mg PO DAILY #10 tab Instructions: Sinusitis, Adult (DC) Forms: [employer] (Turkish) - Clinical Impression Clinical Impression: Sinusitis - PA / E [employer] / Resident Statement MD/DO has reviewed & agrees with the documentation as recorded. - Scribe Statement The provider has reviewed the documentation as recorded by the Scribe Giovanna Churchill All medical record entries made by the Prudenceibreno were at my direction and personally dictated by me. I have reviewed the chart and agree that the record accurately reflects my personal performance of the history, physical exam, medical decision making, and the department course for this patient. I have also personally directed, reviewed, and agree with the discharge instructions and disposition.
[2017-10-04 06:15] LABS: ALB/GLOB RATIO 1.1 (1.0-2.1); ALT/SGPT 32 U/L (21-72); AST/SGOT 25 U/L (17-59); BLOOD UREA NITROGEN 16 mg/dL (9-20); GFR AFRICAN-AMERICAN > 60; GFR NON-AFRICAN AMERICAN > 60
[2017-10-04 06:30] LABS: SQUAMOUS EPITHIAL 1 /hpf (0-5); URINE BILIRUBIN NEGATIVE (NEGATIVE); URINE BLOOD NEGATIVE (NEGATIVE); URINE CLARITY Clear (Clear); URINE COLOR Yellow (YELLOW); URINE GLUCOSE (UA) NORMAL (Normal); URINE LEUKOCYTE ESTERASE 2+ Leu/uL (Negative); URINE PROTEIN NEGATIVE (NEGATIVE)
[2017-10-04] MEDS ORDERED: Sodium Chloride 0.9% 1,000 ML ONE ×2 (06:55→08:37)
[2017-10-04] MEDS ORDERED: Sodium Chloride 0.9% 1,000 ML IV STA (08:21)
[2017-10-04] MEDS ORDERED: cefTRIAXone IV 1 gm in Dextros 50 ML IVPB ONE (08:37)
--- NOTE | 2017-10-04 14:32 | RAD ---
Date of service: 10/04/2017 HISTORY: dizziness, sob COMPARISON: 09/22/2015 TECHNIQUE: Chest PA and lateral FINDINGS: LUNGS: No active pulmonary disease. PLEURA: No significant pleural effusion identified. No pneumothorax apparent. CARDIOVASCULAR: Normal. OSSEOUS STRUCTURES: No significant abnormalities. VISUALIZED UPPER ABDOMEN: Normal. OTHER FINDINGS: Mild asymmetrical elevation the right hemidiaphragm - similar status in this patient. IMPRESSION: No active disease. No interval pathology noted
[2017-10-04 15:12] LABS: BARBITURATES, UR NEGATIVE (NEGATIVE); BENZODIAZEPINES, UR NEGATIVE (NEGATIVE); OPIATES, UR NEGATIVE (NEGATIVE); PHENCYCLIDINE, UR NEGATIVE (NEGATIVE)
[2017-10-04 16:24] VITALS: RESP 20
--- NOTE | 2017-10-04 20:32 | CP.PCM.HP ---
Past Patient History - Infectious Disease Hx of Infectious Diseases: None - Past Medical History & Family History Past Medical History?: Yes - Past Social History Smoking Status: Never Smoked - CARDIAC Hx Cardiac Disorders: No - PULMONARY Hx Asthma: Yes - NEUROLOGICAL Hx Neurological Disorder: No - HEENT Hx HEENT Problems: No - RENAL Hx Chronic Kidney Disease: No - ENDOCRINE/METABOLIC Hx Endocrine Disorders: No - HEMATOLOGICAL/ONCOLOGICAL Hx Blood Disorders: No - INTEGUMENTARY Hx Dermatological Problems: No - MUSCULOSKELETAL/RHEUMATOLOGICAL Hx Falls: Yes - GASTROINTESTINAL Hx Gastritis: Yes Hx Pancreatitis: Yes - GENITOURINARY/GYNECOLOGICAL Hx Genitourinary Disorders: No - PSYCHIATRIC Hx Psychophysiologic Disorder: No Hx Substance Use: No - SURGICAL HISTORY Hx Surgeries: No - ANESTHESIA Hx Anesthesia: No Meds Home Medications: Home Medication List Medication Instructions Recorded Confirmed Type Amoxicillin/Clavulanate [Augmentin 1 tab PO BID #14 tab 10/04/17 Rx 875 MG-125 MG] Fluticasone Nasal [Flonase] 1 actuation NS DAILY #1 spr 10/04/17 Rx Loratadine [Claritin] 10 mg PO DAILY #10 tab 10/04/17 Rx Allergies/Adverse Reactions: Allergies Allergy/AdvReac Type Severity Reaction Status Date / Time No Known Allergies Allergy Verified 10/04/17 05:03 Physical Exam - Constitutional Appears: Well - Head Exam Head Exam: ATRAUMATIC, NORMAL INSPECTION, NORMOCEPHALIC - Eye Exam Eye Exam: EOMI, Normal appearance, PERRL Pupil Exam: NORMAL ACCOMODATION, PERRL - ENT Exam ENT Exam: Mucous Membranes Moist, Normal Exam - Neck Exam Neck exam: Positive for: Normal Inspection - Respiratory Exam Respiratory Exam: Decreased Breath Sounds - Cardiovascular Exam Cardiovascular Exam: REGULAR RHYTHM, +S1, +S2 - GI/Abdominal Exam GI & Abdominal Exam: Diminished Bowel Sounds, Soft - Rectal Exam Rectal Exam: Deferred Results - Vital Signs Recent Vital Signs: Last Vital Signs Temp 98.7 F 10/04/17 16:22 Pulse 110 H 10/04/17 16:22 Resp 20 10/04/17 16:22 BP 105/68 10/04/17 16:22 Pulse Ox 96 10/04/17 16:22 - Labs Result Diagrams: 10/04/17 05:56 10/04/17 05:56 Labs: Laboratory Results - last 24 hr 10/04/17 10/04/1718 05:56 05:56 06:17 WBC 9.3 RBC 5.84 Hgb 15.7 Hct 46.0 MCV 78.8 L MCH 26.9 L MCHC 34.2 RDW 14.8 H Plt Count 214 MPV 7.4 Neut % (Auto) 80.2 H Lymph % (Auto) 10.7 L [place] % (Auto) 7.1 Eos % (Auto) 1.5 Baso % (Auto) 0.5 Neut # (Auto) 7.5 H Lymph # (Auto) 1.0 [place] # (Auto) 0.7 Eos # (Auto) 0.1 Baso # (Auto) 0.0 Sodium 139 Potassium 4.2 Chloride 101 Carbon Dioxide 23 Anion Gap 19 BUN 16 Creatinine 0.9 Est GFR ( Amer) > 60 Est GFR (Non-Af Amer) > 60 Random Glucose 106 Calcium 9.0 Total Bilirubin 0.6 AST 25 ALT 32 Alkaline Phosphatase 97 Total Protein 7.6 Albumin 4.0 Globulin 3.5 Albumin/Globulin Ratio 1.1 Urine Color Yellow Urine Clarity Clear Urine pH 7.0 Ur Specific [place] 1.020 Urine Protein Negative Urine Glucose (UA) Normal Urine Ketones Negative Urine Blood Negative Urine Nitrate Negative Urine Bilirubin Negative Urine Urobilinogen 2.0 Ur Leukocyte Esterase 2+ H Urine WBC (Auto) 39 H Urine RBC (Auto) 3 Ur Squamous Epith Cells 1 Urine Opiates Screen Urine Methadone Screen Ur Barbiturates Screen Ur Phencyclidine Scrn Ur Amphetamines Screen U Benzodiazepines Scrn U Oth Cocaine Metabols U Cannabinoids Screen 10/04/17 14:34 WBC RBC Hgb Hct MCV MCH MCHC RDW Plt Count MPV Neut % (Auto) Lymph % (Auto) [place] % (Auto) Eos % (Auto) Baso % (Auto) Neut # (Auto) Lymph # (Auto) [place] # (Auto) Eos # (Auto) Baso # (Auto) Sodium Potassium Chloride Carbon Dioxide Anion Gap BUN Creatinine Est GFR ( Amer) Est GFR (Non-Af Amer) Random Glucose Calcium Total Bilirubin AST ALT Alkaline Phosphatase Total Protein Albumin Globulin Albumin/Globulin Ratio Urine Color Urine Clarity Urine pH Ur Specific [place] Urine Protein Urine Glucose (UA) Urine Ketones Urine Blood Urine Nitrate Urine Bilirubin Urine Urobilinogen Ur Leukocyte Esterase Urine WBC (Auto) Urine RBC (Auto) Ur Squamous Epith Cells Urine Opiates Screen Negative Urine Methadone Screen Negative Ur Barbiturates Screen Negative Ur Phencyclidine Scrn Negative Ur Amphetamines Screen Negative U Benzodiazepines Scrn Negative U Oth Cocaine Metabols Negative U Cannabinoids Screen Negative
[2017-10-05] MEDS: Benzocaine/Menthol (Cepacol) Lozenge MT PRN ×3 (01:16→18:19)
[2017-10-05 06:33] LABS: BASO # 0.1 K/uL (0.0-0.2); BASO % 0.9 % (0.0-2.0); EOS % 0.1 % (0.0-4.0); HEMOGLOBIN 15.2 g/dL (12.0-18.0); LYMPH % 19.5 % (20.0-40.0); MEAN CELL VOLUME 79.2 fL (80.0-94.0); MEAN CORPUSCULAR HEMOGLOBIN 27.5 pg (27.0-31.0); MEAN CORPUSCULAR HGB CONC 34.7 g/dL (33.0-37.0); MEAN PLATELET VOLUME 7.5 fL (7.2-11.7); MONO # 1.4 K/uL (0.0-0.8); MONO % 13.8 % (0.0-10.0); NEUT # 6.7 K/uL (1.8-7.0); NEUT % 65.7 % (50.0-75.0); NRBC % 0.1 % (0.0-2.0); RBC 5.54 Mil/uL (4.40-5.90); RED CELL DISTRIBUTION WIDTH 14.5 % (11.5-14.5); WHITE BLOOD COUNT 10.3 K/uL (4.8-10.8)
[2017-10-05 07:15] LABS: AMYLASE 71 U/L (30-110); BLOOD UREA NITROGEN 13 mg/dL (9-20); GFR AFRICAN-AMERICAN > 60; GFR NON-AFRICAN AMERICAN > 60; LIPASE 43 U/L (23-300)
--- NOTE | 2017-10-05 11:32 | CP.PCM.PN ---
Subjective - Date & Time of Evaluation Date of Evaluation: 10/05/17 Time of Evaluation: 07:00 - Subjective Subjective: Patient is a 27 year old male with PMHx of multiple episodes of pancreatitis who came to the ER for lightheadedness, headache, sore throat, and chills. Today patient says he is feeling much better. Patient still admits to a sore throat, but says his symptoms have otherwise resolved. Patient denies chest pain , abdominal pain, nausea, vomiting, constipation, or diarrhea. All: NKDA PMHx: pancreatitis Psurg: none Famhx: Mom: DMII social: quit smoking a few months ago, used to smoke 1 cigarette per month socially. Stopped drinking alcohol a few months ago. Used to binge drink 10 + drinks once a week, denies drugs Objective - Vital Signs/Intake and Output Vital Signs (last 24 hours): Temp Pulse Resp BP Pulse Ox 98.4 F 101 H 20 110/75 98 10/05/17 07:00 10/05/17 07:00 10/05/17 07:00 10/05/17 07:00 10/05/17 08:24 Intake and Output: 10/05/17 10/05/17 06:59 18:59 Intake Total 540 Output Total 800 Balance -260 - Medications Medications: Current Medications Acetaminophen (Tylenol 325mg Tab) 650 mg PO Q6 PRN PRN Reason: Pain, moderate (4-7) Last Admin: 10/05/17 01:09 Dose: 650 mg Benzocaine/Menthol (Cepacol Sore Throat) 1 nabila MT Q6 PRN PRN Reason: Sore Throat Last Admin: 10/05/17 10:01 Dose: 1 nabila Ceftriaxone Sodium 1 gm/ (Sodium Chloride) 100 mls @ 100 mls/hr IVPB DAILY FILIBERTO PRN Reason: Protocol Last Admin: 10/05/17 09:51 Dose: 100 mls/hr - Labs Labs: 10/05/17 06:22 10/05/17 06:22 - Constitutional Appears: Non-toxic, No Acute Distress, Other (morbidly obese) - Head Exam Head Exam: ATRAUMATIC, NORMAL INSPECTION, NORMOCEPHALIC - Eye Exam Eye Exam: EOMI, Normal appearance - ENT Exam ENT Exam: Mucous Membranes Moist - Respiratory Exam Respiratory Exam: Clear to Ausculation Bilateral, NORMAL BREATHING PATTERN - Cardiovascular Exam Cardiovascular Exam: REGULAR RHYTHM, RRR, +S1, +S2 - Extremities Exam Extremities Exam: Normal Inspection - Back Exam Back Exam: NORMAL INSPECTION - Neurological Exam Neurological Exam: Alert, Awake, Oriented x3 - Psychiatric Exam Psychiatric exam: Normal Affect, Normal Mood - Skin Skin Exam: Intact, Normal Color, Warm Assessment and Plan - Assessment and Plan (Free Text) Assessment: Sinusitis Tylenol 650mg po q6h prn Ceftriaxone 1 gm daily Fever f/u blood cultures, Dr. Puckett consulted, help appreciated UTI UA: leuk esterase 2+, urine wbc 39 antibiotics as above f/u urine culture Pharyngitis antibiotics as above Cepacol q6h prn Tachycardia patient given fluids HR 101 in am continue to monitor Prophylaxis scds
--- NOTE | 2017-10-05 12:31 | CP.PCM.PN ---
Subjective - Date & Time of Evaluation Date of Evaluation: 10/05/17 Time of Evaluation: 08:00 - Subjective Subjective: clinically same Objective - Vital Signs/Intake and Output Vital Signs (last 24 hours): Temp Pulse Resp BP Pulse Ox 98.4 F 101 H 20 110/75 98 10/05/17 07:00 10/05/17 07:00 10/05/17 07:00 10/05/17 07:00 10/05/17 08:24 Intake and Output: 10/05/17 10/05/17 06:59 18:59 Intake Total 540 Output Total 800 Balance -260 - Medications Medications: Current Medications Acetaminophen (Tylenol 325mg Tab) 650 mg PO Q6 PRN PRN Reason: Pain, moderate (4-7) Last Admin: 10/05/17 01:09 Dose: 650 mg Benzocaine/Menthol (Cepacol Sore Throat) 1 nabila MT Q6 PRN PRN Reason: Sore Throat Last Admin: 10/05/17 10:01 Dose: 1 nabila Ceftriaxone Sodium 1 gm/ (Sodium Chloride) 100 mls @ 100 mls/hr IVPB DAILY FILIBERTO PRN Reason: Protocol Last Admin: 10/05/17 09:51 Dose: 100 mls/hr - Labs Labs: 10/05/17 06:22 10/05/17 06:22
--- NOTE | 2017-10-05 15:27 | CP.PCM.CON ---
History of Present Illness - History of Present Illness History of Present Illness: Patient is a 27 year old male with PMHx of multiple episodes of pancreatitis who came to the ER for lightheadedness, headache, sore throat, and chills. admitted for sinusitis and UTI will screen for STD's All: NKDA PMHx: pancreatitis Psurg: none Famhx: Mom: DMII social: quit smoking a few months ago, used to smoke 1 cigarette per month socially. Stopped drinking alcohol a few months ago. Used to binge drink 10 + drinks once a week, denies drugs Past Patient History - Infectious Disease Hx of Infectious Diseases: None - Past Medical History & Family History Past Medical History?: Yes - Past Social History Smoking Status: Never Smoked - CARDIAC Hx Cardiac Disorders: No - PULMONARY Hx Asthma: Yes - NEUROLOGICAL Hx Neurological Disorder: No - HEENT Hx HEENT Problems: No - RENAL Hx Chronic Kidney Disease: No - ENDOCRINE/METABOLIC Hx Endocrine Disorders: No - HEMATOLOGICAL/ONCOLOGICAL Hx Blood Disorders: No - INTEGUMENTARY Hx Dermatological Problems: No - MUSCULOSKELETAL/RHEUMATOLOGICAL Hx Falls: Yes - GASTROINTESTINAL Hx Gastritis: Yes Hx Pancreatitis: Yes - GENITOURINARY/GYNECOLOGICAL Hx Genitourinary Disorders: No - PSYCHIATRIC Hx Psychophysiologic Disorder: No Hx Substance Use: No - SURGICAL HISTORY Hx Surgeries: No - ANESTHESIA Hx Anesthesia: No Meds Home Medications: Home Medication List Medication Instructions Recorded Confirmed Type Amoxicillin/Clavulanate [Augmentin 1 tab PO BID #14 tab 10/04/17 Rx 875 MG-125 MG] Fluticasone Nasal [Flonase] 1 actuation NS DAILY #1 spr 10/04/17 Rx Loratadine [Claritin] 10 mg PO DAILY #10 tab 10/04/17 Rx Allergies/Adverse Reactions: Allergies Allergy/AdvReac Type Severity Reaction Status Date / Time No Known Allergies Allergy Verified 10/04/17 05:03 - Medications Medications: Current Medications Acetaminophen (Tylenol 325mg Tab) 650 mg PO Q6 PRN PRN Reason: Pain, moderate (4-7) Last Admin: 10/05/17 01:09 Dose: 650 mg Benzocaine/Menthol (Cepacol Sore Throat) 1 nabila MT Q6 PRN PRN Reason: Sore Throat Last Admin: 10/05/17 10:01 Dose: 1 nabila Ceftriaxone Sodium 1 gm/ (Sodium Chloride) 100 mls @ 100 mls/hr IVPB Q12H FILIBERTO PRN Reason: Protocol Results - Vital Signs Recent Vital Signs: Last Vital Signs Temp 98.4 F 10/05/17 07:00 Pulse 101 H 10/05/17 07:00 Resp 20 10/05/17 07:00 BP 110/75 10/05/17 07:00 Pulse Ox 98 10/05/17 08:24 - Labs Result Diagrams: 10/05/17 06:22 10/05/17 06:22 Labs: Laboratory Results - last 24 hr 10/05/17 10/05/17 06:22 06:22 WBC 10.3 RBC 5.54 Hgb 15.2 Hct 43.8 MCV 79.2 L MCH 27.5 MCHC 34.7 RDW 14.5 Plt Count 198 MPV 7.5 Neut % (Auto) 65.7 Lymph % (Auto) 19.5 L [place] % (Auto) 13.8 H Eos % (Auto) 0.1 Baso % (Auto) 0.9 Neut # (Auto) 6.7 Lymph # (Auto) 2.0 [place] # (Auto) 1.4 H Eos # (Auto) 0.0 Baso # (Auto) 0.1 Sodium 138 Potassium 4.0 Chloride 102 Carbon Dioxide 21 L Anion Gap 19 BUN 13 Creatinine 0.9 Est GFR ( Amer) > 60 Est GFR (Non-Af Amer) > 60 Random Glucose 95 Calcium 9.0 Amylase 71 Lipase 43 Assessment & Plan - Assessment and Plan (Free Text) Plan: recc CT Sinuses w/o contrast
--- NOTE | 2017-10-05 15:37 | CARD ---
APPROVED REPORT Date of service: 10/04/2017 EKG Measurement Heart [id number] <Conclusion> Normal sinus rhythm Low voltage QRS Borderline ECG
[2017-10-05 16:16] VITALS: O2SAT 96
[2017-10-05] MEDS: Enoxaparin 40 mg Syringe SC SCH (18:04)
[2017-10-05 18:51] LABS: HEPATITIS A IGM NEGATIVE (NEGATIVE); HEPATITIS B CORE AB NEGATIVE (NEGATIVE)
[2017-10-05 19:13] LABS: HEPATITIS B SURFACE AG Negative (NEGATIVE)
[2017-10-05 20:35] LABS: HEPATITIS C ANTIBODY REACTIVE (NEGATIVE)
[2017-10-05 22:27] LABS: INFLUENZA A B NEGATIVE FOR FLU A/B (NEGATIVE)
--- NOTE | 2017-10-06 07:35 | CP.PCM.PN ---
Subjective - Date & Time of Evaluation Date of Evaluation: 10/06/17 Time of Evaluation: 07:00 - Subjective Subjective: PGY2 Progress Note for Dr. Trevizo Patient seen and examined at bedside and in no acute distress. Patient says he is feeling much better. Patient says his sore throat is much better and his other symptoms have resolved. Patient denies chest pain, abdominal pain, nausea , vomiting, constipation, or diarrhea. Objective - Vital Signs/Intake and Output Vital Signs (last 24 hours): Temp Pulse Resp BP Pulse Ox 98.2 F 100 H 20 127/69 96 10/05/17 23:31 10/05/17 23:31 10/05/17 23:31 10/05/17 23:31 10/05/17 23:31 Intake and Output: 10/06/17 10/06/17 06:59 18:59 Intake Total 800 Balance 800 - Medications Medications: Current Medications Acetaminophen (Tylenol 325mg Tab) 650 mg PO Q6 PRN PRN Reason: Pain, moderate (4-7) Last Admin: 10/05/17 01:09 Dose: 650 mg Benzocaine/Menthol (Cepacol Sore Throat) 1 nabila MT Q6 PRN PRN Reason: Sore Throat Last Admin: 10/05/17 18:19 Dose: 1 nabila Enoxaparin Sodium (Lovenox) 40 mg SC DAILY FILIBERTO Last Admin: 10/05/17 18:04 Dose: 40 mg Ceftriaxone Sodium 1 gm/ (Sodium Chloride) 100 mls @ 100 mls/hr IVPB Q12H FILIBERTO PRN Reason: Protocol Last Admin: 10/05/17 21:18 Dose: 100 mls/hr - Labs Labs: 10/05/17 06:22 10/05/17 06:22 - Additional Findings Additional findings: - Constitutional Appears: Non-toxic, No Acute Distress, Other (morbidly obese) - Head Exam Head Exam: ATRAUMATIC, NORMAL INSPECTION, NORMOCEPHALIC - Eye Exam Eye Exam: EOMI, Normal appearance - ENT Exam ENT Exam: Mucous Membranes Moist - Respiratory Exam Respiratory Exam: Clear to Ausculation Bilateral, NORMAL BREATHING PATTERN - Cardiovascular Exam Cardiovascular Exam: REGULAR RHYTHM, RRR, +S1, +S2 - Extremities Exam Extremities Exam: Normal Inspection - Back Exam Back Exam: NORMAL INSPECTION - Neurological Exam Neurological Exam: Alert, Awake, Oriented x3 - Psychiatric Exam Psychiatric exam: Normal Affect, Normal Mood - Skin Skin Exam: Intact, Normal Color, Warm Assessment and Plan - Assessment and Plan (Free Text) Assessment: Sinusitis Tylenol 650mg po q6h prn Ceftriaxone 1 gm daily Fever f/u blood cultures Dr. Puckett consulted, help appreciated UTI UA: leuk esterase 2+, urine wbc 39 antibiotics as above urine culture negative Hep C reactive f/u viral load and genotype Pharyngitis antibiotics as above Cepacol q6h prn Tachycardia patient given fluids HR 101 in am continue to monitor Prophylaxis scds Management as per Dr. Trevizo Patient is stable for discharge. Patient to take Augmentin po BID for 7 days. Patient will need to follow up as an outpatient for results of Hep C viral load and genotype and for treatment.
[2017-10-06 07:47] VITALS: BP 119/78; PULSE 86; TEMP 98
[2017-10-06 07:47] LABS: BASO % 0.7 % (0.0-2.0); EOS # 0.1 K/uL (0.0-0.7); EOS % 1.4 % (0.0-4.0); LYMPH # 2.3 K/uL (1.0-4.3); LYMPH % 32.9 % (20.0-40.0); MEAN CELL VOLUME 78.8 fL (80.0-94.0); MEAN CORPUSCULAR HEMOGLOBIN 27.3 pg (27.0-31.0); MEAN CORPUSCULAR HGB CONC 34.6 g/dL (33.0-37.0); MEAN PLATELET VOLUME 7.6 fL (7.2-11.7); MONO # 0.7 K/uL (0.0-0.8); MONO % 10.2 % (0.0-10.0); NEUT # 3.8 K/uL (1.8-7.0); NEUT % 54.8 % (50.0-75.0); NRBC % 0.1 % (0.0-2.0); RBC 5.86 Mil/uL (4.40-5.90); RED CELL DISTRIBUTION WIDTH 14.6 % (11.5-14.5); WHITE BLOOD COUNT 6.9 K/uL (4.8-10.8)
[2017-10-06 07:59] LABS: ALB/GLOB RATIO 1.2 (1.0-2.1); ALBUMIN 4.1 g/dL (3.5-5.0); ALT/SGPT 33 U/L (21-72); AST/SGOT 31 U/L (17-59); BLOOD UREA NITROGEN 11 mg/dL (9-20); CALCIUM 8.9 mg/dl (8.6-10.4); GFR AFRICAN-AMERICAN > 60; GFR NON-AFRICAN AMERICAN > 60
[2017-10-06] MEDS: Enoxaparin 40 mg Syringe SC SCH (09:45)
== END 2017-10-06 15:36 | disposition home or self-care (01) ==
LOC: C.ER 04:42 → C.9E 08:21 → C.3T 08:48
PROVIDERS: ADMIT Internal Medicine Nephrology; ATTEND Internal Medicine Nephrology
DX: N39.0 Urinary tract infection, site not specified (principal); Z83.3 Family history of diabetes mellitus; J01.90 Acute sinusitis, unspecified; J45.909 Unspecified asthma, uncomplicated; Z87.891 Personal history of nicotine dependence; B19.20 Unspecified viral hepatitis C without hepatic coma; K29.70 Gastritis, unspecified, without bleeding; I95.9 Hypotension, unspecified; J02.9 Acute pharyngitis, unspecified; R00.0 Tachycardia, unspecified; R42 Dizziness and giddiness
CPT/HCPCS: 36415; 71046; 80048; 80053; 80074; 80324; 80345; 80346; 80349; 80353; 80358; 80361; 81001; 82150; 83690; 83735; 83992; 84100; 85025; 86703; 86803; 87040; 87070; 87086; 87430; 87804; 87902; 93005; 96360; 96365; 96374; 99285; G0378; J0696; J1650; J1885; J7030

== ENCOUNTER 2018-01-15 03:34 | Emergency (ER) | payer MEDICAID ==
[2018-01-15 03:35] VITALS: BMI 50.1
[2018-01-15 03:50] VITALS: PULSE 112; RESP 20
--- NOTE | 2018-01-15 04:39 | C.PDOC ---
History Of Present Illness 27 year old male presents to the ED for evaluation of generalized body aches, chills, malaise, nasal congestion and dry cough which began one day ago. Patient denies shortness of breath, nausea, vomiting. Time Seen by Provider: 01/15/18 03:50 Chief Complaint (Nursing): Cough, Cold, Congestion History Per: Patient History/Exam Limitations: no limitations Onset/Duration Of Symptoms: Hrs Current Symptoms Are (Timing): Still Present Associated Symptoms: Chills, Cough, Nasal Congestion. denies: Sputum, Nausea, Vomiting Additional History Per: Patient Past Medical History Reviewed: Historical Data, Nursing Documentation, Vital Signs Vital Signs: Last Vital Signs Temp 98 F 01/15/18 03:46 Pulse 112 H 01/15/18 03:46 Resp 20 01/15/18 03:46 BP 123/81 01/15/18 03:46 Pulse Ox 96 01/15/18 03:46 - Medical History PMH: Asthma, Gastritis, Pancreatitis Denies: Chronic Kidney Disease Surgical History: No Surg Hx Family History: States: Unknown Family Hx - Social History Hx Tobacco Use: No Hx Alcohol Use: Yes (2 x a year) Hx Substance Use: No - Immunization History Hx Tetanus Toxoid Vaccination: Yes Hx Influenza Vaccination: Yes Hx Pneumococcal Vaccination: Yes Review Of Systems Constitutional: Positive for: Chills, Malaise ENT: Positive for: Nose Congestion Respiratory: Positive for: Cough. Negative for: Shortness of Breath, Sputum Gastrointestinal: Negative for: Nausea, Vomiting Musculoskeletal: Positive for: Other (generalized body aches ) Physical Exam - Physical Exam Appears: Non-toxic, No Acute Distress, Other (morbidly obese) Skin: Normal Color, Warm, Dry Head: Atraumatic, Normacephalic Eye(s): bilateral: Normal Inspection Ear(s): Bilateral: Normal Nose: Normal, No Discharge Oral Mucosa: Moist Throat: Normal, No Erythema, No Exudate Neck: Supple Chest: Symmetrical, No Deformity, No Tenderness Cardiovascular: Rhythm Regular, No Murmur Respiratory: Normal Breath Sounds, No Rales, No Rhonchi, No Wheezing Extremity: Normal ROM Neurological/Psych: Oriented x3, Normal Speech, Normal Cognition ED Course And Treatment O2 Sat by Pulse Oximetry: 96 (on RA) Pulse Ox Interpretation: Normal Progress Note: On reassessment, patient is resting comfortably, remains afebrile, is showing no signs of distress and stable for discharge. Patient is advised to follow up with PMD within 1-2 days for further evaluation. Reevaluation Time: 05:30 Reassessment Condition: Improved Disposition Counseled Patient/Family Regarding: Diagnosis, Need For Followup, Rx Given - Disposition Referrals: Shaik Welsh MD [Staff Provider] - Disposition: HOME/ ROUTINE Disposition Time: 05:30 Condition: STABLE Additional Instructions: Please follow up with PMD Take medications as directed Return to ER if worse Instructions: Viral Upper Respiratory Infection, Adult (DC) Forms: [employer] (Kiswahili) - Clinical Impression Clinical Impression: Viral illness - PA / [employer] / Resident Statement MD/DO has reviewed & agrees with the documentation as recorded. - Scribe Statement The provider has reviewed the documentation as recorded by the Scribe (Jessica Trevizo) All medical record entries made by the Scribe were at my direction and p ersonally dictated by me. I have reviewed the chart and agree that the record accurately reflects my personal performance of the history, physical exam, medical decision making, and the department course for this patient. I have also personally directed, reviewed, and agree with the discharge instructions and disposition.
[2018-01-15 04:48] VITALS: TEMP 98.4
[2018-01-15 04:54] VITALS: BP 129/73
[2018-01-15 05:02] VITALS: O2SAT 96
== END 2018-01-15 05:45 | disposition home or self-care (01) ==
LOC: C.ER 03:34
DX: B34.9 Viral infection, unspecified (principal)